=== PATIENT | male | born 1970 | race Two or more races ===

== ENCOUNTER → 2022-11-14 | Outpatient (CLI) | payer OTHER ==
[~2022-11-14] VITALS: Ht 167.6 cm; Wt 72.6 kg
[~2022-11-14] MED LIST: ADENOSINE 61 MG in GIVE UN-DILUTED 0 ML IV ONE
== END | disposition home or self-care (01) ==
LOC: XYW 09:32
DX: R07.89 Other chest pain (principal); Z95.1 Presence of aortocoronary bypass graft
CPT/HCPCS: 78452; 93017; A9500; J0153

== ENCOUNTER 2023-04-05 08:51 | Day surgery (SDC) | payer OTHER, MEDICAID ==
[2023-04-03 11:33] LABS: Urine Epithelial Cast None Seen /hpf (<5)
[2023-04-03 11:35] LABS: Basophils # (auto) 0.1 10 ^3/uL (0-0.2); Eosinophils # (auto) 0.1 10 ^3/uL (0-0.8); Lymphocytes # (auto) 3.2 10 ^3/uL (0.4-5.4); Mean Corpuscular Hgb Conc. 34.7 g/dL (32.0-36.0); Nucleated Red Blood Cells % 0.1 %; Red Cell Distribution Width 12.9 % (11.8-14.3); White Blood Cell 7.6 10^3/uL (4.4-10.8)
[2023-04-03 11:37] LABS: Basophils % (auto) 0.7 % (0.0-2.0); Eosinophils % (auto) 0.8 % (0.0-7.0); Hematocrit 51.1 % (41.0-53.0); Hemoglobin 17.7 g/dL (13.5-17.5); Lymphocytes % (auto) 42.1 % (10.0-50.0); Mean Corpuscular Hemoglobin 31.6 pg (28.0-32.0); Mean Corpuscular Volume 90.9 fL (80.0-100.0); Monocytes # (auto) 0.5 10 ^3/uL (0-1.3); Neutrophils # (auto) 3.8 10 ^3/uL (1.6-8.6); Neutrophils % (auto) 50.4 % (37.0-80.0); Red Blood Cells 5.62 10^6/uL (4.5-5.90)
[2023-04-03 11:51] LABS: Urine Bacteria NONE SEEN /hpf (None Seen); Urine Blood Negative /uL (Negative); Urine Clarity Clear (Clear); Urine Color Yellow (Yellow); Urine Mucus FEW (None Seen); Urine Protein, UAD Negative (Negative); Urine Specific Gravity 1.046 (1.001-1.035); Urine Urobilinogen Normal (Negative); Urine WBC 1 /hpf (0 - 3); Urine pH 5.5 (5.0-8.0)
[2023-04-03 11:52] LABS: INR 1.01 (0.9-1.15); Partial Thromboplastin Time 24.5 SEC (24.5-34.5); Prothrombin Time 10.6 sec (9.3-11.8)
[2023-04-03 12:01] LABS: Alanine Aminotransferase 27 U/L (7-40); Alkaline Phosphatase 114 U/L (46-116); Anion Gap 7 (5-15); Aspartate Aminotransferase 18 U/L (13-40); BUN/Creatinine Ratio 6.3 (10.0-20.0); Blood Urea Nitrogen 7 mg/dL (9-23); Calcium 9.8 mg/dL (8.5-10.1); Carbon Dioxide 28 mmol/L (20-30); Chloride 100 mmol/L (98-107); Glucose 318 mg/dL (74-106); Potassium 4.1 mmol/L (3.5-5.1); Sodium 135 mmol/L (136-145)
[2023-04-03 12:02] LABS: Albumin 4.7 g/dL (3.2-4.8); Bilirubin, Total 0.8 mg/dL (0.2-1.0); Total Protein 7.7 g/dL (5.7-8.2)
[~2023-04-05] VITALS: Ht 167.6 cm; Wt 65.8 kg
[~2023-04-05 08:51] MED LIST changes: -ADENOSINE 61 MG in GIVE UN-DILUTED 0 ML IV ONE; +AMLO1TAB22 PO
[2023-04-05] MEDS ORDERED: PROPOFOL 10 MG/ML 20 ML IV ONE ×3 (09:18→09:50)
[2023-04-05] MEDS ORDERED: LIDOCAINE 1% INJ PF 5ML AMP ONE (09:18)
[2023-04-05 09:55] VITALS: PULSE 70; RESP 13; TEMP 97.8; O2SAT 100
[2023-04-05 10:20] VITALS: BP 118/86; PULSE 81; RESP 15; O2SAT 99
== END 2023-04-05 10:30 | disposition home or self-care (01) ==
LOC: GI 08:51
PROVIDERS: ATTEND Internal Medicine Gastroenterology
DX: K59.00 Constipation, unspecified (principal); K29.50 Unspecified chronic gastritis without bleeding; K31.84 Gastroparesis; K31.89 Other diseases of stomach and duodenum; K44.9 Diaphragmatic hernia without obstruction or gangrene; D12.0 Benign neoplasm of cecum; K64.8 Other hemorrhoids; K57.30 Diverticulosis of large intestine without perforation or abscess without bleeding; K22.10 Ulcer of esophagus without bleeding; I10 Essential (primary) hypertension; E11.9 Type 2 diabetes mellitus without complications; Z79.899 Other long term (current) drug therapy; Z98.890 Other specified postprocedural states
CPT/HCPCS: 36415; 43239; 45385; 80053; 81001; 82962; 85025; 85610; 85730; 88305; 88312; 88342; J2704; J7030

== ENCOUNTER → 2023-09-16 | Outpatient (CLI) | payer OTHER ==
[2023-09-16 08:44] LABS: Urine Bacteria None Seen /hpf (None Seen)
[2023-09-16 09:02] LABS: Hematocrit 44.8 % (41.0-53.0); Hemoglobin 15.3 g/dL (13.5-17.5); Mean Corpuscular Hemoglobin 31.5 pg (28.0-32.0); Mean Corpuscular Hgb Conc. 34.3 g/dL (32.0-36.0); Mean Corpuscular Volume 91.9 fL (80.0-100.0); Red Blood Cells 4.87 10^6/uL (4.5-5.90); Red Cell Distribution Width 12.3 % (11.8-14.3); White Blood Cell 6.1 10^3/uL (4.4-10.8)
[2023-09-16 09:05] LABS: Urine Blood Negative /uL (Negative); Urine Clarity Clear (Clear); Urine Color Light-Yellow (Yellow); Urine Mucus FEW (None Seen); Urine Protein, UAD Negative (Negative); Urine Specific Gravity 1.041 (1.001-1.035); Urine Urobilinogen Normal (Negative); Urine WBC <1 /hpf (0 - 3); Urine pH 5.5 (5.0-9.0)
[2023-09-16 09:12] LABS: Basophils % (manual) 0 (0.0-2.0); Blast Cells 0; Metamyelocytes % 0; Myelocytes % 0; Promyelocytes % 0
[2023-09-16 09:26] LABS: Creatinine, Urine 131.41 mg/dL (30.0-125.0)
[2023-09-16 09:29] LABS: Band Neutrophils % (manual) 2; Eosinophils % (manual) 3 (0-7); Lymphocytes % (manual) 57 (10.0-50.0); Monocytes % (manual) 7 (0-12); Reactive Lymphocytes 5
[2023-09-16 09:30] LABS: Platelet Estimate Adequate; RBC Morphology Normal
[2023-09-16 09:31] LABS: Alanine Aminotransferase 15 U/L (7-40); Albumin 3.9 g/dL (3.2-4.8); Alkaline Phosphatase 112 U/L (46-116); Anion Gap 4 (5-15); Aspartate Aminotransferase 9 U/L (13-40); BUN/Creatinine Ratio 6.2 (10.0-20.0); Bilirubin, Total 0.4 mg/dL (0.2-1.0); Blood Urea Nitrogen 5 mg/dL (9-23); Calcium 9.4 mg/dL (8.5-10.1); Carbon Dioxide 29 mmol/L (20-30); Chloride 103 mmol/L (98-107); Cholesterol 213 mg/dL (< 200); Glucose 252 mg/dL (74-106); HDL Cholesterol 37 mg/dL (40-59); LDL Cholesterol 136 mg/dL (< 100); Sodium 136 mmol/L (136-145); Total Protein 6.2 g/dL (5.7-8.2); Triglycerides 291 mg/dL (< 150)
== END | disposition home or self-care (01) ==
LOC: LAB 08:32
PROVIDERS: ATTEND Internal Medicine
DX: Z12.11 Encounter for screening for malignant neoplasm of colon (principal); N42.9 Disorder of prostate, unspecified; E78.00 Pure hypercholesterolemia, unspecified; R68.89 Other general symptoms and signs; E11.69 Type 2 diabetes mellitus with other specified complication
CPT/HCPCS: 36415; 80053; 80061; 81001; 82043; 82570; 83036; 84153; 85007; 85027

== ENCOUNTER 2023-12-24 22:03 | Emergency (ER) | payer OTHER ==
[~2023-12-24] VITALS: Ht 167.6 cm; Wt 77.0 kg
[2023-12-24 22:32] VITALS: PULSE 73; RESP 16; TEMP 98.4; O2SAT 99
[2023-12-24] MEDS: SODIUM CHLORIDE 0.9% 1,000 ML IV ONE (22:41)
[2023-12-24 23:11] LABS: Basophils # (auto) 0.1 10 ^3/uL (0-0.2); Basophils % (auto) 0.8 % (0.0-2.0); Eosinophils # (auto) 0.1 10 ^3/uL (0-0.8); Eosinophils % (auto) 1.1 % (0.0-7.0); Hematocrit 39.5 % (41.0-53.0); Hemoglobin 13.6 g/dL (13.5-17.5); Lymphocytes # (auto) 2.8 10 ^3/uL (0.4-5.4); Lymphocytes % (auto) 30.2 % (10.0-50.0); Mean Corpuscular Hemoglobin 31.3 pg (28.0-32.0); Mean Corpuscular Hgb Conc. 34.5 g/dL (32.0-36.0); Mean Corpuscular Volume 90.8 fL (80.0-100.0); Monocytes # (auto) 0.7 10 ^3/uL (0-1.3); Monocytes % (auto) 7.2 % (0.0-12.0); Neutrophils # (auto) 5.7 10 ^3/uL (1.6-8.6); Neutrophils % (auto) 60.7 % (37.0-80.0); Nucleated Red Blood Cells % 0.1 %; Platelet Count (auto) 285 10^3/uL (140-450); Red Blood Cells 4.35 10^6/uL (4.5-5.90); Red Cell Distribution Width 12.8 % (11.8-14.3); White Blood Cell 9.3 10^3/uL (4.4-10.8)
[2023-12-24 23:18] LABS: Chloride 105 mmol/L (98-107); Potassium 3.7 mmol/L (3.5-5.1); Sodium 139 mmol/L (136-145)
[2023-12-24 23:19] LABS: Anion Gap 8 (5-15); Calcium 8.9 mg/dL (8.7-10.4); Carbon Dioxide 26 mmol/L (20-31)
[2023-12-24 23:24] LABS: BUN/Creatinine Ratio 7.3 (10.0-20.0); Blood Urea Nitrogen 7 mg/dL (9-23); Glucose 227 mg/dL (74-106)
[2023-12-25 01:39] VITALS: BP 116/75; PULSE 64; RESP 15; O2SAT 96
== END 2023-12-25 03:40 | disposition home or self-care (01) ==
LOC: EDBD 22:03 → EEVIPCON 22:03 → ER 22:03
DX: T42.8X1A Poisoning by antiparkinsonism drugs and other central muscle-tone depressants, accidental (unintentional), initial encounter (principal); R53.83 Other fatigue; I10 Essential (primary) hypertension; Y92.89 Other specified places as the place of occurrence of the external cause
CPT/HCPCS: 36415; 80048; 85025; 93005; 96360; 99285; J7030

== ENCOUNTER → 2024-01-09 | Outpatient (CLI) | payer OTHER | END | disposition home or self-care (01) | LOC: LAB 07:17 | PROVIDERS: ATTEND Internal Medicine | DX: E11.9 Type 2 diabetes mellitus without complications (principal) | CPT/HCPCS: 36415; 83036 ==

== ENCOUNTER → 2024-05-01 | Day surgery (SDC) | payer OTHER ==
[2024-04-29 09:53] LABS: Basophils # (auto) 0.1 10 ^3/uL (0-0.2); Basophils % (auto) 0.4 % (0.0-2.0); Eosinophils # (auto) 0.2 10 ^3/uL (0-0.8); Eosinophils % (auto) 1.3 % (0.0-7.0); Hematocrit 39.7 % (41.0-53.0); Hemoglobin 14.2 g/dL (13.5-17.5); Lymphocytes # (auto) 2.7 10 ^3/uL (0.4-5.4); Lymphocytes % (auto) 21.2 % (10.0-50.0); Mean Corpuscular Hemoglobin 32.4 pg (28.0-32.0); Mean Corpuscular Hgb Conc. 35.6 g/dL (32.0-36.0); Mean Corpuscular Volume 90.8 fL (80.0-100.0); Monocytes # (auto) 0.7 10 ^3/uL (0-1.3); Monocytes % (auto) 5.7 % (0.0-12.0); Neutrophils # (auto) 9.2 10 ^3/uL (1.6-8.6); Neutrophils % (auto) 71.4 % (37.0-80.0); Platelet Count (auto) 342 10^3/uL (140-450); Red Blood Cells 4.37 10^6/uL (4.5-5.90); Red Cell Distribution Width 12.2 % (11.8-14.3); White Blood Cell 12.8 10^3/uL (4.4-10.8)
[2024-04-29 10:10] LABS: INR 0.94 (0.9-1.15); Partial Thromboplastin Time 24.5 SEC (24.5-34.5)
[2024-04-29 12:09] LABS: Alanine Aminotransferase 24 U/L (7-40)
[2024-04-29 12:10] LABS: Albumin 4.3 g/dL (3.2-4.8); Anion Gap 9 (5-15); BUN/Creatinine Ratio 9.5 (10.0-20.0); Calcium 9.7 mg/dL (8.7-10.4); Carbon Dioxide 28 mmol/L (20-31); Chloride 99 mmol/L (98-107)
[2024-04-29 12:11] LABS: Aspartate Aminotransferase 15 U/L (13-40)
[2024-04-29 12:12] LABS: Bilirubin, Total 0.4 mg/dL (0.2-1.0); Total Protein 7.3 g/dL (5.7-8.2)
[2024-04-29 12:21] LABS: Sodium 136 mmol/L (136-145)
[2024-04-29 12:22] LABS: Blood Urea Nitrogen 7 mg/dL (9-23); Glucose 273 mg/dL (74-106)
[2024-04-29 13:18] LABS: Alkaline Phosphatase 119 U/L (46-116)
[~2024-05-01] VITALS: Ht 167.6 cm; Wt 72.6 kg
[~2024-05-01] MED LIST changes: +ASPI325T6 PO; +ATOR10TA PO; +BUSP5TAB51 PO; +DOCU-94 PO; +DULO60CA41 PO; +FAMO20TA10 PO; +FENO134C19 PO; +GABA-1250 PO; +INSU100I47 SC; +INSU1INJ19 SC; +LORA-1121 PO; +LORA-622 PO; +MELO15TA29 PO; +METO1TAB77 PO; +MIRT-94 OR; +NITR0.4D14 TD; +OMEGCAP OR; +OMEP20TA PO; +SODIUM CHLORIDE LOCK 10 ML ONE; +TIZA4TAB9 PO; +VENL150C3 PO
[2024-05-01 13:05] VITALS: PULSE 94; RESP 20; O2SAT 100
[2024-05-01] MEDS: fentaNYL CITRATE 100 MCG/2 ML VL ONE (13:09)
[2024-05-01] MEDS: MIDAZOLAM HCL 5 MG/ML-1ML VIAL ONE (13:09)
[2024-05-01] MEDS: diphenhdrAMINE HCL 50 MG/1 ML VL ONE (13:09)
[2024-05-01 13:30] VITALS: PULSE 101; RESP 16; O2SAT 98
[2024-05-01 13:50] VITALS: BP 134/74; PULSE 98; RESP 17; O2SAT 97
--- NOTE | 2024-05-01 14:55 | DVHOP2 ---
Operative Report DATE OF OPERATION: 05/01/24 PROCEDURE: Diagnostic Colonoscopy. PREOPERATIVE INDICATION: The patient is a 54 -year-old male undergoing colonoscopy for surveillance because of history of tubular adenoma and incomplete colonoscopy on last examination due to poor prep POSTOPERATIVE DIAGNOSES: Plan 1. Limited study due to poor prep with some residual thick liquid brown stool with debris noted in certain pockets at the splenic flexure and the hepatic flexure in the ascending colon area 2. However after careful irrigation aspiration no gross lesion was seen and it was a grossly normal examination up to the cecum PROCEDURE PERFORMED BY: Jeb Harris M.D. SCOPE: Olympus videocolonoscope. ASA CLASS: 2. PREOPERATIVE MEDICATIONS: Versed 3 mg, Fentanyl 75 mcg, Benadryl 50 mg PROCEDURE IN DETAIL: After obtaining an informed consent, the patient was placed on left lateral decubitus position. He was then sedated with the above medications. A rectal examination was performed that was normal. The colonoscope was then passed through the anus into the rectosigmoid and through the descending, transverse, and ascending colon up to the cecum with visualization of the appendiceal orifice, base of the cecum and the ileocecal valve. The colonoscope was then withdrawn. No polyps or masses were seen. There was no colitis. There was no clear-cut diverticular disease. Patient had a limited study due to poor prep again. However it was thick liquid stool and after careful irrigation aspiration no gross lesion was seen On retroflexion and straight on view the patient had trace to 1+ internal hemorrhoids The patient tolerated the procedure well without difficulty. WITHDRAWAL TIME: 6 minutes QUALITY OF THE PREP: [place] Bowel Prep score: 7. COMPLICATIONS : None SPECIMENS: None DISPOSITION: Stable D/C to home PLAN: 1. Repeat colonoscopy in 2 years with a better two day bowel prep 2. Resume GI soft diet advance as tolerated 3. Local anorectal hemorrhoidal care 4. Stool softeners and increase fluid and fiber intake 5. Outpatient follow up with me in 2-4 weeks to review results and discuss further management JEB HARRIS MD May 01, 2024 14:55
== END | disposition home or self-care (01) ==
LOC: GI 10:30
PROVIDERS: ATTEND Internal Medicine Gastroenterology
DX: K59.00 Constipation, unspecified (principal); K44.9 Diaphragmatic hernia without obstruction or gangrene; K31.84 Gastroparesis; K63.89 Other specified diseases of intestine; Z79.899 Other long term (current) drug therapy; Z86.0101 Personal history of adenomatous and serrated colon polyps
CPT/HCPCS: 36415; 45378; 80053; 82962; 85025; 85610; 85730; J1200; J2250; J3010; 99152

== ENCOUNTER → 2024-05-18 | Outpatient (CLI) | payer OTHER ==
[~2024-05-18] MED LIST changes: -SODIUM CHLORIDE LOCK 10 ML ONE
[2024-05-18 11:58] LABS: Basophils # (auto) 0.1 10 ^3/uL (0-0.2); Eosinophils # (auto) 0.1 10 ^3/uL (0-0.8); Eosinophils % (auto) 0.7 % (0.0-7.0); Hemoglobin 15.3 g/dL (13.5-17.5); Lymphocytes # (auto) 2.5 10 ^3/uL (0.4-5.4); Lymphocytes % (auto) 27.3 % (10.0-50.0); Mean Corpuscular Hemoglobin 31.6 pg (28.0-32.0); Mean Corpuscular Hgb Conc. 34.7 g/dL (32.0-36.0); Mean Corpuscular Volume 91.1 fL (80.0-100.0); Monocytes # (auto) 0.6 10 ^3/uL (0-1.3); Monocytes % (auto) 6.4 % (0.0-12.0); Neutrophils # (auto) 5.8 10 ^3/uL (1.6-8.6); Neutrophils % (auto) 64.6 % (37.0-80.0); Nucleated Red Blood Cells % 0.1 %; Platelet Count (auto) 407 10^3/uL (140-450); Red Blood Cells 4.83 10^6/uL (4.5-5.90)
[2024-05-18 12:25] LABS: Alanine Aminotransferase 16 U/L (7-40); Albumin 4.6 g/dL (3.2-4.8); Anion Gap 10 (5-15); BUN/Creatinine Ratio 10.3 (10.0-20.0); Bilirubin, Total 0.6 mg/dL (0.2-1.0); Blood Urea Nitrogen 11 mg/dL (9-23); Calcium 9.8 mg/dL (8.7-10.4); Carbon Dioxide 25 mmol/L (20-31); Chloride 101 mmol/L (98-107); Cholesterol 177 mg/dL (< 200); Total Protein 7.7 g/dL (5.7-8.2)
[2024-05-18 12:26] LABS: Alkaline Phosphatase 120 U/L (46-116); Aspartate Aminotransferase < 8 U/L (13-40); Glucose 346 mg/dL (74-106); HDL Cholesterol 31 mg/dL (40-59); LDL Cholesterol 112 mg/dL (< 100); Sodium 136 mmol/L (136-145); Triglycerides 274 mg/dL (< 150)
== END | disposition home or self-care (01) ==
LOC: LAB 11:16
PROVIDERS: ATTEND Internal Medicine
DX: E11.69 Type 2 diabetes mellitus with other specified complication (principal); E78.00 Pure hypercholesterolemia, unspecified; R68.89 Other general symptoms and signs
CPT/HCPCS: 36415; 80053; 80061; 82043; 83036; 85025

== ENCOUNTER 2024-08-05 05:46 | Inpatient (IN) | payer OTHER ==
[~2024-08-05] VITALS: Ht 167.6 cm; Wt 66.3 kg
--- NOTE | 2024-08-05 07:46 | ED.PDOC ---
SOB-HPI HPI Comments 54 year old male presents to the ED with chief complaint of hemoptysis. Patient reports that he has been coughing up blood for the past 2 days. Patient relays that he got diagnosed with pneumonia 2 weeks ago and completed a course of antibiotics he was prescribed. Patient states he has associated chest pain, fever, and chills. Patient notes the bleeding was only stained sputum at first, but today he had coughed up a large clot. Patient denies any SOB, dizziness, N/V, or headache. Chief Complaint: Cough Time Seen by MD: 07:45 Reviewed notes: Nurses Notes, Medications, Allergies Information Source: Patient Mode of Arrival: Ambulatory Severity: Moderate Timing: Days Duration: Since onset Context: At Rest PE Risk Factors: None History of: None Prehospital treatment: None Modifying Factors: Nothing Associated Signs and Symptoms: Fever, Cough, Hemoptysis, Chest Pain Quality: Aching Radiation: No Radiation Location: Substernal If cough with SOB: Productive, Bloody Past Medical History PAST MEDICAL HISTORY: Depression, DM, GERD, High Lipids, HTN, [place] Surgical History: Appendectomy, CABG Surgical History (Other): Carpal tunnel surgery Family History Family History: Reviewed,noncontributory to illness Social History Smoker: Non-Smoker Alcohol: Denies ETOH Use Drugs: Denies Drug Use Lives In: Home Constitutional: reports: chills, fever; denies: diaphoresis, fatigue, malaise, sweats, weakness, others EENTM: denies: blurred vision, double vision, ear bleeding, ear discharge, ear drainage, ear pain, ear ringing, eye pain, eye redness, hearing loss, mouth pain, mouth swelling, nasal discharge, nose bleeding, nose congestion, nose pain, photophobia, tearing, throat pain, throat swelling, voice changes, others Respiratory: reports: cough, hemoptysis; denies: orthopnea, SOB at rest, shortness of breath, SOB with excertion, stridor, wheezing, others Cardiovascular: reports: chest pain; denies: dizzy spells, diaphoresis, Dyspnea on exertion, edema, irregular heart beat, left arm pain, lightheadedness, palpitations, PND, syncope, others Gastrointestinal: denies: abdomen distended, abdominal pain, blood streaked bowels, constipated, diarrhea, dysphagia, difficulty swallowing, hematemesis, melena, nausea, poor appetite, poor fluid intake, rectal bleeding, rectal pain, vomiting, others Genitourinary: denies: burning, dysuria, flank pain, frequency, hematuria, incontinence, penile discharge, penile sore, pain, testicle pain, testicle swelling, urgency, others Neurological: denies: dizziness, fainting, headache, left sided numbness, left sided weakness, numbness, paresthesia, pre-existing deficit, right sided numbness, right sided weakness, seizure, speech problems, tingling, tremors, weakness, others Musculoskeletal: denies: back pain, gout, joint pain, joint swelling, muscle pain, muscle stiffness, neck pain, others Integumetry: denies: bruises, change in color, change in hair/nails, dryness, laceration, lesions, lumps, rash, wounds, others Allergic/Immunocompromised: denies: Difficulty Healing, Frequent Infections, Hives, Itching, others Hematologic/Lymphatic: denies: anemia, blood clots, easy bleeding, easy bruising, swollen glands, others Endocrine: denies: excessive hunger, excessive sweating, excessive thirst, excessive urination, flushing, intolerance to cold, intolerance to heat, unexplained weight gain, unexplained weight loss, others Psychiatric: denies: anxiety, bipolar disorder, depression, hopeless, panic disorder, schizophrenia, sleepless, suicidal, others All Other Systems: Reviewed and Negative Physical Exam General Appearance: No Apparent Distress, Normal HEENT: Normal ENT Inspection, PERRL/EOMI, Pharynx Normal, TMs Normal Neck: Full Range of Motion, Non-Tender, Normal, Normal Inspection Respiratory: Chest Non-Tender, Lungs Clear, No Accessory Muscle Use, No Respiratory Distress, Normal Breath Sounds, Other (Patient coughing of blood) Cardiovascular: No Edema, No JVD, No Murmur, No Gallop, Normal Peripheral Pulses, Regular Rate/Rhythm Breast Exam: Deferred Gastrointestinal: No Organomegaly, Non Tender, No Pulsatile Mass, Normal Bowel Sounds, Soft Genitalia: Deferred Pelvic: Deferred Rectal: Deferred Extremities: No calf tenderness, Normal capillary refill, Normal inspection, Normal range of motion, Non-tender, No pedal edema Musculoskeletal : Apperance: Normal Neurologic: Alert, rig supervisor II-XII nml as Tested, No Motor Deficits, Normal Affect, Normal Mood, No Sensory Deficits Cerebellar Function: Normal Reflexes: Normal Skin: Dry, Normal Color, Warm Peripheral Pulses: 1+ carotid (R), 1+ carotid (L) Lymphatic: No Adenopathy Was a procedure done? Was a procedure done?: No Differential Dx Differential Diagnosis: Bronchitis, Hypertension, Pneumonia, Pulmonary Emb olism, Allergic Rhinitis, Pharyngitis, URI X-Ray, Labs, Meds, VS Vital Signs Date Time Temp Pulse Resp B/P (MAP) Pulse Ox O2 Delivery O2 Flow Rate FiO2 08/05/24 13:11 97.7 98 18 137/86 (103) 98 97.7 08/05/24 10:56 97.7 98 18 135/86 (102) 97 97.7 08/05/24 08:35 97 18 97 Room Air* 0 21 08/05/24 08:32 98.2 97 18 112/78 (89) 97 98.2 08/05/24 06:10 98.4 111 18 117/81 (93) 97 98.4 Lab Test 08/05/24 08:03 Range/Units White Blood Count 11.7 H 4.4-10.8 10^3/uL Red Blood Count 4.45 L 4.5-5.90 10^6/uL Hemoglobin 13.1 L 13.5-17.5 g/dL Hematocrit 39.4 L 41.0-53.0 % Mean Corpuscular Volume 88.5 80.0-100.0 fL Mean Corpuscular Hemoglobin 29.4 28.0-32.0 pg Mean Corpuscular Hemoglobin Concent 33.2 32.0-36.0 g/dL Red Cell Distribution Width 13.2 11.8-14.3 % Platelet Count 350 140-450 10^3/uL Mean Platelet Volume 7.3 6.9-10.8 fL Neutrophils (%) (Auto) 71.6 37.0-80.0 % Lymphocytes (%) (Auto) 19.6 10.0-50.0 % Monocytes (%) (Auto) 6.8 0.0-12.0 % Eosinophils (%) (Auto) 1.5 0.0-7.0 % Basophils (%) (Auto) 0.5 0.0-2.0 % Neutrophils # (Auto) 8.4 1.6-8.6 10 ^3/uL Lymphocytes # (Auto) 2.3 0.4-5.4 10 ^3/uL Monocytes # (Auto) 0.8 0-1.3 10 ^3/uL Eosinophils # (Auto) 0.2 0-0.8 10 ^3/uL Basophils # (Auto) 0.1 0-0.2 10 ^3/uL Nucleated Red Blood Cells 0.1 % Prothrombin Time 10.3 9.3-11.8 sec Prothrombin Time INR 0.97 0.9-1.15 Activated Partial Thromboplast Time 25.1 24.5-34.5 SEC D-Dimer, Quantitative 0.95 H 0.0-0.49 mg/L FEU Sodium Level 134 L 136-145 mmol/L Potassium Level 4.4 3.5-5.1 mmol/L Chloride Level 100 98-107 mmol/L Carbon Dioxide Level 29 20-31 mmol/L Anion Gap 5 5-15 Blood Urea Nitrogen 7 L 9-23 mg/dL Creatinine 0.82 0.700-1.30 mg/dL Glomerular Filtration Rate Calc 106 >90 mL/min BUN/Creatinine Ratio 8.5 L 10.0-20.0 Serum Glucose 276 H 74-106 mg/dL Hemoglobin A1c > 14.0 H <5.7 % A1C Calcium Level 8.9 8.7-10.4 mg/dL Magnesium Level 2.2 1.6-2.6 mg/dL Total Bilirubin 0.4 0.2-1.0 mg/dL Aspartate Amino Transferase (AST) 10 L 13-40 U/L Alanine Aminotransferase (ALT) 11 7-40 U/L Alkaline Phosphatase 116 46-116 U/L Total Protein 7.3 5.7-8.2 g/dL Albumin 3.9 3.2-4.8 g/dL CA 125 Antigen Pending Current Medications Medications (Trade) Dose Ordered Sig/Edd Route Start Time Stop Time Status Last Admin Sodium Chloride 250 ml @ 250 mls/hr Q1H ONCE IV 08/05/24 07:45 08/05/24 08:44 DC 08/05/24 09:43 Chest XR: FINDINGS: Lines and Tubes: None Lungs: Right upper lobe consolidation. Pleura: No effusion. No pneumothorax. Cardiomediastinal contours: Unremarkable Bones: No acute osseous abnormality. Status post median sternotomy. IMPRESSION: 1. Right upper lobe consolidation which may represent pneumonia in the appropriate clinical setting. X-Ray, Labs, Meds, VS Comment Course in the emergency department patient came to the emergency department complaining of coughing of large amount of blood today but has been normal so weak Patient has a history of hypertension diabetes high cholesterol depression and has a history of CABG carpal tunnel and appendicitis CBC 69024 with 71.6% neutrophils and normal H&H INR 0.97 D-dimer 0.95 elevated CMP shows a blood sugar of 276 A1c more than 14 Magnesium 2.2 Chest x-ray shows right upper lobe pneumonia CT chest angio shows large cavitary mass nine patient will be admitted for further care Images Reviewed?: Images reviewed and evaluated by me Time of 1ST Reevaluation: 08:44 Reevaluation 1ST: Unchanged Time of 2ND Reevaluation: 15:27 Reevaluation 2ND: Unchanged Patient Education/Counseling: Diagnosis, Treatment, Prognosis Family Education/Counseling: Diagnosis, Treatment, Prognosis, No Family Present Departure 1 Departure Time of Disposition: 15:30 Impression: Primary Impression: Hemoptysis Additional Impressions: Cavitary pneumonia CAD (coronary artery disease) of artery bypass graft Qualified Codes: I25.810 - Atherosclerosis of coronary artery bypass graft(s) without angina pectoris Disposition: ADMITTED INPATIENT Admit to: Tele Condition: Serious Critical Care Note Critical Care Time?: No Stability Stability form required: Yes Unstable for transfer: Telemetry monitoring, Requires medication (Requires Med for stabilization) Heart Score Heart Score: Heart Score Response (Comments) Value History N/A 0 EKG N/A 0 Age 45-64 1 Risk Factors 1 or 2 risk factors 1 Troponin N/A 0 Total 2 I personally scribed for NIKKI PONCE MD ([email or web address]) on 08/05/24 at 07:46. Electronically submitted by Favio Monet ([email or web address]). I personally scribed for NIKKI PONCE MD ([email or web address]) on 08/05/24 at 11:10. Electronically submitted by Favio Monet ([email or web address]). NIKKI PONCE MD August 05, 2024 07:46
--- NOTE | 2024-08-05 08:11 | DVH ---
XY CHEST TWO VIEWS ROUTINE CLINICAL HISTORY: coughing blood COMPARISON: None TECHNIQUE: Frontal and lateral view of the chest was obtained FINDINGS: Lines and Tubes: None Lungs: Right upper lobe consolidation. Pleura: No effusion. No pneumothorax. Cardiomediastinal contours: Unremarkable Bones: No acute osseous abnormality. Status post median sternotomy. IMPRESSION: 1. Right upper lobe consolidation which may represent pneumonia in the appropriate clinical setting.
[2024-08-05 08:35] VITALS: PULSE 97; RESP 18; O2SAT 97
[2024-08-05 08:49] LABS: Alanine Aminotransferase 11 U/L (7-40); Albumin 3.9 g/dL (3.2-4.8); Alkaline Phosphatase 116 U/L (46-116); Anion Gap 5 (5-15); BUN/Creatinine Ratio 8.5 (10.0-20.0); Calcium 8.9 mg/dL (8.7-10.4); Carbon Dioxide 29 mmol/L (20-31); Chloride 100 mmol/L (98-107); Magnesium 2.2 mg/dL (1.6-2.6); Potassium 4.4 mmol/L (3.5-5.1); Total Protein 7.3 g/dL (5.7-8.2)
[2024-08-05 08:50] LABS: Bilirubin, Total 0.4 mg/dL (0.2-1.0)
[2024-08-05 08:52] LABS: Aspartate Aminotransferase 10 U/L (13-40); Blood Urea Nitrogen 7 mg/dL (9-23); Glucose 276 mg/dL (74-106); INR 0.97 (0.9-1.15); Partial Thromboplastin Time 25.1 SEC (24.5-34.5); Prothrombin Time 10.3 sec (9.3-11.8); Sodium 134 mmol/L (136-145)
[2024-08-05 09:33] LABS: Basophils # (auto) 0.1 10 ^3/uL (0-0.2); Basophils % (auto) 0.5 % (0.0-2.0); Eosinophils # (auto) 0.2 10 ^3/uL (0-0.8); Eosinophils % (auto) 1.5 % (0.0-7.0); Hematocrit 39.4 % (41.0-53.0); Hemoglobin 13.1 g/dL (13.5-17.5); Lymphocytes # (auto) 2.3 10 ^3/uL (0.4-5.4); Lymphocytes % (auto) 19.6 % (10.0-50.0); Mean Corpuscular Hemoglobin 29.4 pg (28.0-32.0); Mean Corpuscular Hgb Conc. 33.2 g/dL (32.0-36.0); Mean Corpuscular Volume 88.5 fL (80.0-100.0); Monocytes # (auto) 0.8 10 ^3/uL (0-1.3); Monocytes % (auto) 6.8 % (0.0-12.0); Neutrophils # (auto) 8.4 10 ^3/uL (1.6-8.6); Neutrophils % (auto) 71.6 % (37.0-80.0); Nucleated Red Blood Cells % 0.1 %; Platelet Count (auto) 350 10^3/uL (140-450); Red Blood Cells 4.45 10^6/uL (4.5-5.90); Red Cell Distribution Width 13.2 % (11.8-14.3); White Blood Cell 11.7 10^3/uL (4.4-10.8)
[2024-08-05] MEDS: SODIUM CHLORIDE 0.9% 250 ML IV ONE (09:43)
[2024-08-05] MEDS: IOHEXOL 350 MG/ML 100ML IJ ONE (13:22)
--- NOTE | 2024-08-05 13:46 | DVH ---
CTA Chest with intravenous contrast INDICATION: Pulmonary embolism hemoptysis and elevated D-dimer COMPARISON: None TECHNIQUE: Multidetector spiral CTA of the chest was performed of the chest with intravenous contrast . PULMONARY ANGIOGRAPHY PROTOCOL was utilized using a bolus-tracking technique centered on the main p ulmonary artery. Axial, coronal and sagittal multiplanar and MIP reformats were performed. CONTRAST: Type of contrast: Omni 350 Contrast injected: 100 ml Radiation dose : Chest: CTDI volume is 9.48 mGy. Dose-length product is 368.24 mGy*cm The dose indicators for CT are the volume computed Tomography (CT) dose Index (CTDIvol) and the dose Length product (DLP), and are measured in units of mGy and mGy-cm, respectively. These indicators are not patient dose, but values generated from the CT scanner acquisition factors. The report includes radiation exposure data for exposures received during this examination. Findings: Pulmonary artery: No pulmonary embolism Lower neck: Normal thyroid. Lungs: Masslike consolidation in the right upper lobe with some cavitation. Mass/consolidation extend s into the right middle lobe. Heart/Vascular Structures: Normal heart size. No pericardial effusion. Lymph Nodes: Mediastinal and hilar lymphadenopathy. Pleura: No pleural effusion or significant pneumothorax. Musculoskeletal: No acute osseous abnormality. Soft tissues: Normal. Upper abdomen: Cholelithiasis. IMPRESSION: 1. No pulmonary embolism. 2. Masslike consolidation with cavitation in the right upper lobe extending into the right middle lob e. Finding could represent cavitary pneumonia. Malignancy is not excluded. Clinical correlation and continued follow-up is recommended. Lesion would be amenable to CT-guided biopsy if clinically cally cated. Mediastinal and hilar lymphadenopathy is noted. HS:Y
[2024-08-05] MEDS ORDERED: DEXTROSE (50%) 50ML SYRG IV PRN (14:30)
[2024-08-05] MEDS ORDERED: ACETAMINOPHEN 325 MG TAB PO PRN (14:30)
[2024-08-05] MEDS ORDERED: MORPHINE SULFATE INJ 2 MG/ml SYRG IV PRN (14:30)
[2024-08-05] MEDS ORDERED: NITROGLYCERIN 0.4 MG SL TAB SL PRN (14:30)
[2024-08-05] MEDS ORDERED: ONDANSETRON HCL 4 MG/2 ML VIAL IV PRN (14:30)
[2024-08-05] MEDS ORDERED: HYDROcodone-ACET 5/325MG TAB PO PRN (14:30)
[2024-08-05] MEDS ORDERED: AMIT-238 PO (14:45)
--- NOTE | 2024-08-05 15:03 | DVHHP2 ---
History of Present Illness Reason for Visit: Hemoptysis History of Present Illness Victor Manuel Mayer is a 54-year-old male with past medical history of hypertension, hyperlipidemia, diabetes, GERD, [place] status post CABG in 2017 at [place], depression, colonoscopy, appendectomy, and carpal tunnel surgery who presents to the ED with coughing for 3 months as well as hemoptysis for 2 weeks. Patient reports that he went to see his primary was given antibiotics for 10 days finished the course last week diagnosed for pneumonia. Patient reports that he is taking blood thinners at this time. Patient denies any chest pain, shortness of breath, fever, chills, recent trauma or injury, recent travels, recent sick contacts, recent ingestion of spoiled food, abdominal pain, nausea, vomiting, or diarrhea. Cardiovascular: HTN, [place], hyperipidemia GI: GERD Psych: Depression Endocrine: Diabetes Past Surgical History: Appendectomy, CABG, Other (Colonoscopy and carpal tunnel surgery) Family History: DM, Other (Mom with diabetes) Smoke: No ALCOHOL: none Drugs: None Lives: with Family Domestic Violence: Neg Review of Systems Respiratory: Hemoptysis Allergies: Coded Allergies: NO KNOWN ALLERGIES (Unverified , 11/14/22) Exam Vital Signs Vital Signs Date Time Temp Pulse Resp B/P (MAP) Pulse Ox O2 Delivery O2 Flow Rate FiO2 08/05/24 13:11 97.7 98 18 137/86 (103) 98 97.7 08/05/24 08:35 Room Air* 0 21 General Appearance: Alert, Oriented X3, Cooperative, No acute distress HEENT: Atraumatic, PERRLA, EOMI, Mucous membr. moist/pink Respiratory: Normal air movement Cardiovascular: Normal S1, Normal S2 Abdominal: Normal bowel sounds, Soft Extremities: No clubbing, No cyanosis, No edema, Normal pulses Skin: No significant lesion Neuro: Normal gait, Normal speech, Strength at 5/5 X4 ext, Normal tone, Sensation intact Psych/Mental Status: Mental status NL, Mood NL Labs/Xrays Labs Test 08/05/24 08:03 Range/Units White Blood Count 11.7 H 4.4-10.8 10^3/uL Red Blood Count 4.45 L 4.5-5.90 10^6/uL Hemoglobin 13.1 L 13.5-17.5 g/dL Hematocrit 39.4 L 41.0-53.0 % Mean Corpuscular Volume 88.5 80.0-100.0 fL Mean Corpuscular Hemoglobin 29.4 28.0-32.0 pg Mean Corpuscular Hemoglobin Concent 33.2 32.0-36.0 g/dL Red Cell Distribution Width 13.2 11.8-14.3 % Platelet Count 350 140-450 10^3/uL Mean Platelet Volume 7.3 6.9-10.8 fL Neutrophils (%) (Auto) 71.6 37.0-80.0 % Lymphocytes (%) (Auto) 19.6 10.0-50.0 % Monocytes (%) (Auto) 6.8 0.0-12.0 % Eosinophils (%) (Auto) 1.5 0.0-7.0 % Basophils (%) (Auto) 0.5 0.0-2.0 % Neutrophils # (Auto) 8.4 1.6-8.6 10 ^3/uL Lymphocytes # (Auto) 2.3 0.4-5.4 10 ^3/uL Monocytes # (Auto) 0.8 0-1.3 10 ^3/uL Eosinophils # (Auto) 0.2 0-0.8 10 ^3/uL Basophils # (Auto) 0.1 0-0.2 10 ^3/uL Nucleated Red Blood Cells 0.1 % Prothrombin Time 10.3 9.3-11.8 sec Prothrombin Time INR 0.97 0.9-1.15 Activated Partial Thromboplast Time 25.1 24.5-34.5 SEC D-Dimer, Quantitative 0.95 H 0.0-0.49 mg/L FEU Sodium Level 134 L 136-145 mmol/L Potassium Level 4.4 3.5-5.1 mmol/L Chloride Level 100 98-107 mmol/L Carbon Dioxide Level 29 20-31 mmol/L Anion Gap 5 5-15 Blood Urea Nitrogen 7 L 9-23 mg/dL Creatinine 0.82 0.700-1.30 mg/dL Glomerular Filtration Rate Calc 106 >90 mL/min BUN/Creatinine Ratio 8.5 L 10.0-20.0 Serum Glucose 276 H 74-106 mg/dL Calcium Level 8.9 8.7-10.4 mg/dL Magnesium Level 2.2 1.6-2.6 mg/dL Total Bilirubin 0.4 0.2-1.0 mg/dL Aspartate Amino Transferase (AST) 10 L 13-40 U/L Alanine Aminotransferase (ALT) 11 7-40 U/L Alkaline Phosphatase 116 46-116 U/L Total Protein 7.3 5.7-8.2 g/dL Albumin 3.9 3.2-4.8 g/dL CTA Chest with intravenous contrast INDICATION: Pulmonary embolism hemoptysis and elevated D-dimer COMPARISON: None TECHNIQUE: Multidetector spiral CTA of the chest was performed of the chest with intravenous contrast. PULMONARY ANGIOGRAPHY PROTOCOL was utilized using a bolus- tracking technique centered on the main pulmonary artery. Axial, coronal and sagittal multiplanar and MIP reformats were performed. CONTRAST: Type of contrast: Omni 350 Contrast injected: 100 ml Radiation dose : Chest: CTDI volume is 9.48 mGy. Dose-length product is 368.24 mGy*cm The dose indicators for CT are the volume computed Tomography (CT) dose Index (CTDIvol) and the dose Length product (DLP), and are measured in units of mGy and mGy-cm, respectively. These indicators are not patient dose, but values generated from the CT scanner acquisition factors. The report includes radiation exposure data for exposures received during this examination. Findings: Pulmonary artery: No pulmonary embolism Lower neck: Normal thyroid. Lungs: Masslike consolidation in the right upper lobe with some cavitation. Mass/consolidation extends into the right middle lobe. Heart/Vascular Structures: Normal heart size. No pericardial effusion. Lymph Nodes: Mediastinal and hilar lymphadenopathy. Pleura: No pleural effusion or significant pneumothorax. Musculoskeletal: No acute osseous abnormality. Soft tissues: Normal. Upper abdomen: Cholelithiasis. IMPRESSION: 1. No pulmonary embolism. 2. Masslike consolidation with cavitation in the right upper lobe extending into the right middle lobe. Finding could represent cavitary pneumonia. Malignancy is not excluded. Clinical correlation and continued follow-up is recommended. Lesion would be amenable to CT-guided biopsy if clinically indicated. Mediastinal and hilar lymphadenopathy is noted. XY CHEST TWO VIEWS ROUTINE CLINICAL HISTORY: coughing blood COMPARISON: None TECHNIQUE: Frontal and lateral view of the chest was obtained FINDINGS: Lines and Tubes: None Lungs: Right upper lobe consolidation. Pleura: No effusion. No pneumothorax. Cardiomediastinal contours: Unremarkable Bones: No acute osseous abnormality. Status post median sternotomy. IMPRESSION: 1. Right upper lobe consolidation which may represent pneumonia in the appropriate clinical setting. Assessment/Plan Assessment/Plan Assessment Hemoptysis with possible right upper lobe mass Probable pneumonia PE ruled out History of hypertension History of hyperlipidemia History of diabetes type 2 History of GERD History of [place] status post CABG at [place] in 2017 History of depression History of colonoscopy History of appendectomy History of carpal tunnel surgery Plan Admit to tele Antiemetics Pain management Hold anti coags Chest x-ray noted CT a chest noted Elevated D-dimer NS 250 cc given ED EKG Mag level PT/PTT Diet Hemoglobin A1c ISS and Accu-Cheks UA UDS CA 125 CEA ESR CRP Home medications reconciled DVT prophylaxis-not indicated patient ambulating PUD prophylaxis-PPIs Discussed plan of care with patient and nurse Oncology consult Pulmonary consult Plan discussed with: Patient My Orders Orders - JEFFERY DIOP HORSE RIDER Procedure Category Date Status Time Admit ADMIT 08/05/24 Transmitted 14:24 Allergies SAIMA 08/05/24 Transmitted 14:24 Code Status CODE 08/05/24 Transmitted 14:24 Hydrocodone-Acet PHA 08/05/24 Transmitted 5/325mg Tab ([place] 14:30 Ondansetron Hcl PHA 08/05/24 Transmitted (Zofran) 14:30 Complete Blood Count LAB 08/06/24 Verified 04:00 Comprehensive LAB 08/06/24 Verified Metabolic Panel 04:00 Cardiac DIET 08/05/24 Transmitted Diet-2gna,Lofat,Lochol Dinner Acetaminophen Tablet PHA 08/05/24 Transmitted (Tylenol Tablet) 14:30 Nitroglycerin PHA 08/05/24 Transmitted Sublingual (Ntrostat 14:30 Morphine Sulfate PHA 08/05/24 Transmitted Injection 14:30 Stat Ekg For Chest SAIMA 08/05/24 Transmitted Pain 14:24 Notify Md Of Changes SAIMA 08/05/24 Transmitted From Base 14:24 Gps Field Data Collector For SAIMA 08/05/24 Transmitted 24 Hours 14:24 Emergency Dysrhythmia SAIMA 08/05/24 Transmitted Protocol 14:24 Rhythm Strips Once SAIMA 08/05/24 Transmitted Every Shift 14:24 Oxygen By Nasal RT 08/05/24 Transmitted Cannula 14:24 Glucose Blood PHA 08/05/24 Transmitted (Accu-Chek Comfort 17:00 Mild Sliding Scale PHA 08/05/24 Transmitted 17:00 Dextrose 50% Syringe PHA 5/21/25 Transmitted 14:30 Hemoglobin A1c LAB 08/05/24 Transmitted 14:24 Urinalysis LAB 08/05/24 Transmitted 14:24 Drug Screen LAB 08/05/24 Transmitted 14:24 Ceftriaxone Ivpb PHA 08/05/24 Verified Rocephin 14:30 Date of Service: August 05, 2024 Billing Provider: JEFFERY DIOP Common Visit Codes: [id number] INP/OBS CARE (HIGH) JEFFERY DIOP August 05, 2024 15:03
[2024-08-05 15:55] LABS: Erythrocyte Sedimentation Rate 58 mm/hr (0-20)
[2024-08-05] MEDS: ACCU-CHEK COMFORT CURVE STRIP VI SCH (17:00)
[2024-08-05] MEDS ORDERED: Tizanidine Hydrochloride (Zanaflex) 4 MG PO SCH (18:00)
[2024-08-05] MEDS: cefTRIAXone 1GM/50ML D5W 50 ML IV SCH (18:00)
[2024-08-05] MEDS: InsuLIN REG 1unit/0.01ml Soln (100units/ml) SC SCH (18:00)
[2024-08-05 20:00] VITALS: PULSE 100
[2024-08-05 21:00] VITALS: BP 136/86; PULSE 100; RESP 20; TEMP 98.5; O2SAT 97
[2024-08-05] MEDS: busPIRone HCL 10 MG TAB PO SCH (21:03)
[2024-08-05] MEDS: ATORVASTATIN 20 MG TAB PO SCH (21:03)
[2024-08-05] MEDS: MIRTAZAPINE 30 MG TAB PO SCH (21:03)
[2024-08-05] MEDS: FAMOTIDINE 20 MG TAB PO SCH (21:03)
[2024-08-05] MEDS: GABAPENTIN 300 MG CAP PO SCH (21:03)
[2024-08-05] MEDS: LORazepam 0.5 MG TAB PO SCH (21:03)
[2024-08-05 21:14] LABS: Urine Bacteria None Seen /hpf (None Seen)
[2024-08-05 21:43] LABS: Urine Blood Negative /uL (Negative); Urine Clarity Clear (Clear); Urine Color Colorless (Yellow); Urine Protein, UAD Negative (Negative); Urine Specific Gravity 1.011 (1.001-1.035); Urine Squamous Epithelial Cell None Seen /hpf (<5); Urine Urobilinogen Normal (Negative); Urine WBC < 1 /HPF (0-3); Urine pH 7.5 (5.0-9.0)
[2024-08-05 21:44] LABS: Amphetamine Screen, Urine Neg (NEGATIVE); Barbiturate Scree,Urine Neg (NEGATIVE); Benzodiazephine Screen, Urine Neg (NEGATIVE); Cannabinoid Screen, Urine Neg (NEGATIVE); Cocaine Screen, Urine Neg (NEGATIVE); Opiate Scree,Urine Pos (NEGATIVE); Phencyclidine Screen, Urine Neg (NEGATIVE)
[2024-08-06] VITALS (8 sets, daily range): BP systolic 104–135; BP diastolic 69–94; PULSE 62–114; RESP 16–21; TEMP 97.9–98.4; O2SAT 96–99
[2024-08-06] MEDS: Tizanidine Hydrochloride (Zanaflex) 4 MG PO SCH
[2024-08-06 07:40] LABS: Basophils # (auto) 0.1 10 ^3/uL (0-0.2); Basophils % (auto) 0.7 % (0.0-2.0); Eosinophils # (auto) 0.3 10 ^3/uL (0-0.8); Eosinophils % (auto) 3.8 % (0.0-7.0); Hematocrit 37.4 % (41.0-53.0); Hemoglobin 12.9 g/dL (13.5-17.5); Lymphocytes # (auto) 2.7 10 ^3/uL (0.4-5.4); Lymphocytes % (auto) 30.4 % (10.0-50.0); Mean Corpuscular Hemoglobin 29.9 pg (28.0-32.0); Mean Corpuscular Hgb Conc. 34.4 g/dL (32.0-36.0); Monocytes # (auto) 0.7 10 ^3/uL (0-1.3); Monocytes % (auto) 7.8 % (0.0-12.0); Neutrophils % (auto) 57.3 % (37.0-80.0); Nucleated Red Blood Cells % 0.1 %; Platelet Count (auto) 361 10^3/uL (140-450); Red Blood Cells 4.29 10^6/uL (4.5-5.90); Red Cell Distribution Width 13.1 % (11.8-14.3); White Blood Cell 8.7 10^3/uL (4.4-10.8)
[2024-08-06 08:00] LABS: Alanine Aminotransferase 10 U/L (7-40); Albumin 3.6 g/dL (3.2-4.8); Alkaline Phosphatase 97 U/L (46-116); Anion Gap 9 (5-15); Carbon Dioxide 26 mmol/L (20-31); Chloride 102 mmol/L (98-107); Potassium 4.1 mmol/L (3.5-5.1); Sodium 137 mmol/L (136-145); Total Protein 6.8 g/dL (5.7-8.2)
[2024-08-06 08:01] LABS: Bilirubin, Total 0.4 mg/dL (0.2-1.0)
[2024-08-06 08:05] LABS: Aspartate Aminotransferase 10 U/L (13-40); BUN/Creatinine Ratio 7.1 (10.0-20.0); Blood Urea Nitrogen < 5 mg/dL (9-23); Glucose 174 mg/dL (74-106)
[2024-08-06] MEDS: LORATADINE 10 MG TAB PO SCH (08:53)
[2024-08-06] MEDS: VENLAFAXINE HCL 37.5mg XR cap PO SCH (08:54)
[2024-08-06] MEDS: AMITRIPTYLINE HCL 25 MG TAB PO SCH (08:54)
[2024-08-06] MEDS: METOPROLOL TARTRATE 50 MG TAB PO SCH (08:54)
[2024-08-06] MEDS: amLODIPine BESYLATE 5 MG TAB PO SCH (08:55)
[2024-08-06] MEDS: FENOFIBRATE 134 MG PO SCH (08:59)
[2024-08-06] MEDS ORDERED: VANCOMYCIN PER PHARMACY 0 MG IV SCH (10:45)
--- NOTE | 2024-08-06 11:07 | DVHPN2 ---
Subjective 54-year-old male with a history of diabetes, hypertension, coronary artery disease status post CABG in 2017, depression, GERD, hiatal hernia comes with chief complaint of cough for 3 months and recently hemoptysis. He says he had the cough for about 3 months it was dry in the beginning and then he was having some productive cough and then he went to his primary care physician and had a treatment for possible pneumonia with an antibiotic that he took for 10 days and he finished it but he did not get better Lately he has been having also hemoptysis where he describes having coughing up some blood clots. It is mostly dark blood associated with some dark sputum sometimes He also describes a metal taste that he feels when he is coughing up that phlegm No weight loss No fever and chills Changes from previous H/P or p: Changes Respiratory: Hemoptysis Objective Vitals Vital Signs Date Time Temp Pulse Resp B/P (MAP) Pulse Ox O2 Delivery O2 Flow Rate FiO2 08/06/24 08:55 135/89 08/06/24 08:54 101 08/06/24 08:30 97.9 16 96 97.9 08/05/24 20:00 Room Air* 0 21 Intake/Output Intake and Output 08/06/24 07:00 Intake Total 540 ml Balance 540 ml Intake Oral 240 ml IV Total 300 ml # Voids 3 General Appearance: Alert, Oriented X3, Cooperative, No acute distress Lungs: Clear to auscultation, Normal air movement Cardiovascular: Regular rate, Normal S1, Normal S2 Abdomen: Normal bowel sounds, Soft, No tenderness Extremities: No edema Medications Current Medications Medications Dose Ordered Sig/Edd Route Start Time Stop Time Status Last Admin Dose Admin Acetaminophen/ Hydrocodone Bitart 1 tab Q4HP PRN PO 08/05/24 14:30 Ondansetron HCl 4 mg Q4HP PRN IV 08/05/24 14:30 Acetaminophen 650 mg Q6HP PRN PO 08/05/24 14:30 Nitroglycerin 0.4 mg Q5MINP PRN SL 08/05/24 14:30 Morphine Sulfate 2 mg Q30M PRN IV 08/05/24 14:30 Diagnostic Test (Pha) 1 strip ACHS 08/05/24 17:00 08/06/24 06:01 1 STRIP Insulin Human Regular ACHS SC 08/05/24 17:00 08/06/24 06:01 3 UNITS Dextrose 50 ml UD PRN IV 08/05/24 14:30 Amlodipine Besylate 5 mg DAILY PO 08/06/24 10:00 08/06/24 08:55 5 MG Famotidine 40 mg HS PO 08/05/24 22:00 08/05/24 21:03 40 MG Gabapentin 300 mg TID PO 08/05/24 22:00 08/06/24 05:40 300 MG Loratadine 10 mg DAILY PO 08/06/24 10:00 08/06/24 08:53 10 MG Lorazepam 1 mg TID PO 08/05/24 22:00 08/06/24 05:40 1 MG Metoprolol Tartrate 50 mg DAILY PO 08/06/24 10:00 08/06/24 08:54 50 MG Mirtazapine 30 mg HS PO 08/05/24 22:00 08/05/24 21:03 30 MG Atorvastatin Calcium 10 mg HS PO 08/05/24 22:00 08/05/24 21:03 10 MG Patient Own Medication 60 mg TID PO 08/05/24 22:00 Patient Own Medication 134 mg DAILY PO 08/06/24 10:00 Venlafaxine HCl 150 mg DAILY PO 08/06/24 10:00 08/06/24 08:54 150 MG Amitriptyline HCl 25 mg DAILY PO 08/06/24 10:00 08/06/24 08:54 25 MG Buspirone HCl 10 mg BID PO 08/05/24 22:00 08/06/24 08:54 10 MG Patient Own Medication 4 mg Q6HP PO 08/06/24 00:00 Ampicillin Sodium/ Sulbactam Sodium 3 gm/Sodium Chloride 100 ml @ 100 mls/hr Q6H IV 08/06/24 11:00 Vancomycin HCl 0 ml @ 0 mls/hr UD IV 08/06/24 10:45 UNV Laboratory Results Laboratory Tests 08/06/24 06:39 Chemistry Test 08/06/24 06:39 Albumin 3.6 g/dL (3.2-4.8) Calcium Level 9.0 mg/dL (8.7-10.4) Total Protein 6.8 g/dL (5.7-8.2) LFT Test 08/06/24 06:39 Alanine Aminotransferase (ALT) 10 U/L (7-40) Alkaline Phosphatase 97 U/L (46-116) Aspartate Amino Transferase (AST) 10 U/L (13-40) L Total Bilirubin 0.4 mg/dL (0.2-1.0) Urinalysis Test 08/05/24 20:45 Urine Color Colorless (Yellow) Urine Clarity Clear (Clear) Urine pH 7.5 (5.0-9.0) Urine Specific [place] 1.011 (1.001-1.035) Urine Protein Negative (Negative) Urine Ketones Trace (Negative) Urine Blood Negative /uL (Negative) Urine Nitrite Negative (Negative) Urine Bilirubin Negative (Negative) Urine Urobilinogen Normal mg/dL (Negative) Urine Leukocyte Esterase Negative /uL (Negative) Urine RBC <1 /hpf (0 - 3) Urine Microscopic WBC < 1 /HPF (0-3) Urine Squamous Epithelial Cells None seen /hpf (<5) Urine Bacteria None seen /hpf (None Seen) Urine Glucose 3+ mg/dL (Normal) H Assessment/Plan Assessment/Plan Right upper lobe pneumonia Possible right upper lobe lung abscess Rule out malignancy Type 2 diabetes Hypertension Coronary artery disease GERD Depression Tachycardia Sepsis due to the above Plan Continue IV antibiotics Switch to Unasyn and vancomycin Sputum culture Blood culture Urinalysis negative Pulmonary consultation Oxygen as needed Med neb treatments as needed Resume the home medications Monitor closely The rest of the management will depend on the hospital course Full code Advance directives discussed for 18 minutes Plan discussed with: Patient My Orders Orders - CAMERON MEMBRENO MD Procedure Category Date Status Time Ampicillin & PHA 08/06/24 In Process Sulbactam Sodium 11:00 Vancomycin Per PHA 08/06/24 Pending Pharmacy 10:45 Vancomycin 1gm/200ml PHA 08/06/24 In Process Pm 10:45 Date of Service: August 06, 2024 Billing Provider: CAMERON MEMBRENO MD Common Visit Codes: [id number] INP/OBS CARE(HIGH) Secondary Visit Codes: [id number] CARE PLAN 30 MINUTES CAMERON MEMBRENO MD August 06, 2024 11:07
[2024-08-06] MEDS: VANCOMYCIN 1GM/200ML PM 200 ML IV ONE (11:55)
[2024-08-06] MEDS: AMPICILLIN & SULBACTAM SODIUM 3 GM in SODIUM CHL 0.9% 100 ML IV SCH ×2 (15:34→21:29)
[2024-08-06] MEDS ORDERED: MET50T PO (19:09)
[2024-08-06] MEDS ORDERED: TIZA4CAP7 PO (19:09)
[2024-08-06] MEDS ORDERED: FENO1CAP4 OR (19:09)
--- NOTE | 2024-08-06 20:54 | DVHINCON2 ---
Date of service: August 05, [address] Blanco Reason for Consultation Acute respiratory failure History of Present Illness History Source: Patient Exam Limitations: No limitations HPI Patient is a 54-year old gentleman with a history of diabetes, hypertension and hyperlipidemia who presented with shortness of breath, cough and hemoptysis. Patient states he developed cold-like symptoms 3 months ago and has experienced intermittent shortness of breath and cough since. He reports onset of hemoptysis 10 days ago and received antibiotics as outpatient however presented back with persistent symptoms. CT of the chest demonstrated right upper lobe masslike consolidation with cavitation and the patient was admitted for further workup. Pulmonology was consulted to assist in management. Home Meds Reported Medications Tizanidine Hydrochloride (TIZANIDINE HCL) 4 Mg Cap, 4 MG PO HS, CAP 08/06/24 Metoprolol Tartrate (LOPRESSOR TABLET) 50 Mg Tb, 1 TAB PO BID, #60 TAB 5 Refills 08/06/24 Fenofibrate (FENOFIBRATE) 130 Mg Cap, 130 MG OR DAILY, CAP 08/06/24 Amitriptyline HCl (Amitriptyline Hydrochlori) 25 Mg Tab, 1 TAB PO 08/05/24 Docusate Sodium (Colace) 100 Mg Cap, 100 MG PO BID, CAP 04/29/24 Omeprazole (Gnp Omeprazole) 20 Mg Tab, 20 MG PO DAILY, TAB 04/29/24 Duloxetine Hcl (Cymbalta) 60 Mg Cap, 60 MG PO TID, CAP 04/29/24 Lorazepam (ATIVAN TABLET) 0.5 Mg Tb, 2 TAB PO TID, TAB 04/29/24 Mirtazapine (REMERON) 30 Mg Tab, 30 MG OR HS, TAB 04/29/24 Venlafaxine Hydrochloride (Effexor Xr) 150 Mg Cap, 150 MG PO DAILY, CAP 04/29/24 Famotidine (PEPCID TABLET) 20 Mg Tb, 40 MG PO HS, TAB 04/29/24 Meloxicam (Meloxicam) 15 Mg Tab, 15 MG PO DAILY, TAB 04/29/24 Buspirone Hcl (Buspirone Hcl) 5 Mg Tab, 10 MG PO BID, TAB 04/29/24 Nitroglycerin (Nitroglycerin Transdermal) 0.4 Mg/Hr Dis, 1 MG TD, DIS 04/29/24 Aspirin (Aspirin) 325 Mg Tab, 325 MG PO DAILY, TAB 04/29/24 Gabapentin (Gabapentin) 300 Mg Cap, 300 MG PO TID, CAP 04/29/24 [place] 3 Fatty Acids-[place] 6 Fa (SM OMEGA-3) Cap, 1 OR DAILY, CAP 04/29/24 Loratadine (Claritin) 10 Mg Tab, 10 MG PO DAILY, TAB 04/29/24 Atorvastatin Calcium (Lipitor) 10 Mg Tab, 10 MG PO DAILY, TAB 04/29/24 Insulin NPH (Human) (Isophane) (Novolin N Flexpen) 100 Unit/Ml Inj, 100 UNIT SC DAILY, INJ 04/29/24 Insulin Glargine (Basaglar Kwikpen) 100 Unit/Ml Inj, 100 UNIT SC DAILY, INJ 04/29/24 Amlodipine Besylate (Amlodipine Besylate) 5 Mg Tab, 5 MG PO DAILY, TAB 04/03/23 Discontinued Reported Medications Fenofibrate (Fenofibrate Micronized) 134 Mg Cap, 134 MG PO DAILY, CAP 04/29/24 Past Medical History Cardiac: HTN, Hyperlipidemia Pulmonary: No pertinent Hx Central Nervous System: No pertinent Hx GI: No pertinent Hx Hemotology/Oncology: No pertinent Hx Hepatobiliary: No pertinent Hx Psychiatric: No pertinent Hx Musculoskeletal: No pertinent Hx Rheumotologic: No pertinent Hx Infectious Disease: No peritnent Hx ENT: No pertinent Hx Renal/: No pertinent Hx Endocrine: NIDDM Dermatology: No pertinent Hx Past Surgical History: No pertinent Hx Family History: DM Patient Family History: Diabetes mellitus G8 MOTHER G8 FATHER Smoker: No Hx (Negative) Alocohol: None Drugs: None Lives with: With family Domestic Violence: Neg Review of Systems Constitutional: No symptom reported Ears, Nose, & Throat: No symptom reported Eyes: No symptom reported Pulmonary/Respiratory: Dyspnea, Cough, Other (hemoptysis ) Cardiovascular: No symptom reported Gastrointestinal: No symptom reported Genitourinary: No symptom reported Musculoskeletal: No symptom reported Skin: No symptom reported Psychiatric: No symptom reported Endocrine: No symptom reported Hemotologic/Lymphatic: No symptom reported H&P Exam Vital Signs Vital Signs Date Time Temp Pulse Resp B/P (MAP) Pulse Ox O2 Delivery O2 Flow Rate FiO2 08/06/24 20:00 Room Air* 0 21 08/06/24 16:50 98.2 62 16 104/69 (81) 96 98.2 General Appeara: Well developed, Well nourished, Normal Appearance Head Exam: Normal inspection Neck Exam: Normal inspection, Non-tender, Normal alignment Eye Exam: bilateral eye Normal inspection, bilateral eye PERRL, bilateral eye EOMI Ear Exam: bilateral ear Auricle normal, bilateral ear Canal normal, bilateral ear TM normal Nasal Exam: Normal inspection Mouth: Normal Inspection Pulmonary/Respiratory: Normal inspection, Normal breath sounds, Chest non- tender, Lungs clear Cardiovascular/Chest: Normal inspection, Regular rate, Normal Rhythm Peripheral Pulses: 4+ Radial (R), 4+ Radial (L), 4+ Brachial (R), 4+ Brachial (L) Abdominal Exam: Normal bowel sounds Labs/Xrays Labs Test 08/06/24 17:12 08/06/24 06:39 08/05/24 20:45 08/05/24 15:02 Range/Units POC Glucose 226 H 70-106 mg/dl White Blood Count 8.7 # 4.4-10.8 10^3/uL Red Blood Count 4.29 L 4.5-5.90 10^6/uL Hemoglobin 12.9 L 13.5-17.5 g/dL Hematocrit 37.4 L 41.0-53.0 % Mean Corpuscular Volume 87.0 80.0-100.0 fL Mean Corpuscular Hemoglobin 29.9 28.0-32.0 pg Mean Corpuscular Hemoglobin Concent 34.4 32.0-36.0 g/dL Red Cell Distribution Width 13.1 11.8-14.3 % Platelet Count 361 140-450 10^3/uL Mean Platelet Volume 7.1 6.9-10.8 fL Neutrophils (%) (Auto) 57.3 37.0-80.0 % Lymphocytes (%) (Auto) 30.4 10.0-50.0 % Monocytes (%) (Auto) 7.8 0.0-12.0 % Eosinophils (%) (Auto) 3.8 0.0-7.0 % Basophils (%) (Auto) 0.7 0.0-2.0 % Neutrophils # (Auto) 5.0 1.6-8.6 10 ^3/uL Lymphocytes # (Auto) 2.7 0.4-5.4 10 ^3/uL Monocytes # (Auto) 0.7 0-1.3 10 ^3/uL Eosinophils # (Auto) 0.3 0-0.8 10 ^3/uL Basophils # (Auto) 0.1 0-0.2 10 ^3/uL Nucleated Red Blood Cells 0.1 % Sodium Level 137 136-145 mmol/L Potassium Level 4.1 3.5-5.1 mmol/L Chloride Level 102 98-107 mmol/L Carbon Dioxide Level 26 20-31 mmol/L Anion Gap 9 5-15 Blood Urea Nitrogen < 5 L 9-23 mg/dL Creatinine 0.70 0.700-1.30 mg/dL Glomerular Filtration Rate Calc 111 >90 mL/min BUN/Creatinine Ratio 7.1 L 10.0-20.0 Serum Glucose 174 #H 74-106 mg/dL Calcium Level 9.0 8.7-10.4 mg/dL Total Bilirubin 0.4 0.2-1.0 mg/dL Aspartate Amino Transferase (AST) 10 L 13-40 U/L Alanine Aminotransferase (ALT) 10 7-40 U/L Alkaline Phosphatase 97 46-116 U/L Total Protein 6.8 5.7-8.2 g/dL Albumin 3.6 3.2-4.8 g/dL Urine Color Colorless Yellow Urine Clarity Clear Clear Urine pH 7.5 5.0-9.0 Urine Specific [place] 1.011 1.001-1.035 Urine Protein Negative Negative Urine Ketones Trace Negative Urine Blood Negative Negative /uL Urine Nitrite Negative Negative Urine Bilirubin Negative Negative Urine Urobilinogen Normal Negative mg/dL Urine Leukocyte Esterase Negative Negative /uL Urine RBC <1 0 - 3 /hpf Urine Microscopic WBC < 1 0-3 /HPF Urine Squamous Epithelial Cells None seen <5 /hpf Urine Bacteria None seen None Seen /hpf Urine Glucose 3+ H Normal mg/dL Urine Opiates Screen Pos NEGATIVE Urine Fentanyl Screen Neg NEGATIVE Urine Barbiturates Screen Neg NEGATIVE Urine Phencyclidine Screen Neg NEGATIVE Urine Amphetamines Screen Neg NEGATIVE Urine Benzodiazepines Screen Neg NEGATIVE Urine Cocaine Screen Neg NEGATIVE Urine Cannabinoids Screen Neg NEGATIVE Erythrocyte Sedimentation Rate 58 H 0-20 mm/hr C-Reactive Protein High Sensitivity 6.43 H <1.0 mg/dL Carcinoembryonic Antigen 1.46 <=5.0 ng/mL Test 08/05/24 08:03 Range/Units Prothrombin Time 10.3 9.3-11.8 sec Prothrombin Time INR 0.97 0.9-1.15 Activated Partial Thromboplast Time 25.1 24.5-34.5 SEC D-Dimer, Quantitative 0.95 H 0.0-0.49 mg/L FEU Hemoglobin A1c > 14.0 H <5.7 % A1C Magnesium Level 2.2 1.6-2.6 mg/dL [place] 125 Antigen 22.6 Not Estab. U/mL Assessment/Plan Plan Impression ? Lung abscess Hemoptysis Pneumonia Atelectasis Patient seen and examined Events Low oxygen requirements On room air Vital signs stable Labs and imaging reviewed CTA of the chest shows no evidence of PE Demonstrates masslike consolidation with cavitation in the right upper lobe extending into the right middle lobe Finding could represent cavitary pneumonia. Malignancy is not excluded. Management Supplemental oxygen as needed Titrate to maintain sats 92% or above Incentive spirometry Antibiotics and antifungals Start Fluconazole 200mg IV daily Recommend ID input Recommended prolonged course of antibiotics for lung abscess IV antibiotics, then transition to oral antibiotics Repeat CT of the chest 4-6 weeks Bronchodilators Monitor renal function Monitor electrolytes Supplement as needed DVT prophylaxis Plan discussed with: Patient CHANTELLE HUNTER MD August 06, 2024 20:54
--- NOTE | 2024-08-06 20:55 | DVHPN2 ---
Progress Note - Dictate Date Seen: August 06, 2024 Medical Necessity Reason Pt with a Central, PICC or Fol: No vital signs Vital Sign Date Time Temp Pulse Resp B/P (MAP) Pulse Ox O2 Delivery O2 Flow Rate FiO2 08/06/24 20:00 Room Air* 0 21 08/06/24 16:50 98.2 62 16 104/69 (81) 96 98.2 Total Intake and Output 08/05/24 08/05/24 08/06/24 14:59 22:59 06:59 Intake Total 250 ml 50 ml 240 ml Balance 250 ml 50 ml 240 ml medications Current Medications Medications Dose Ordered Sig/Edd Route Start Time Stop Time Status Last Admin Dose Admin Acetaminophen/ Hydrocodone Bitart 1 tab Q4HP PRN PO 08/05/24 14:30 Ondansetron HCl 4 mg Q4HP PRN IV 08/05/24 14:30 Acetaminophen 650 mg Q6HP PRN PO 08/05/24 14:30 Nitroglycerin 0.4 mg Q5MINP PRN SL 08/05/24 14:30 Morphine Sulfate 2 mg Q30M PRN IV 08/05/24 14:30 Diagnostic Test (Pha) 1 strip ACHS 08/05/24 17:00 08/06/24 17:20 1 STRIP Insulin Human Regular ACHS SC 08/05/24 17:00 08/06/24 17:29 4 UNITS Dextrose 50 ml UD PRN IV 08/05/24 14:30 Amlodipine Besylate 5 mg DAILY PO 08/06/24 10:00 08/06/24 08:55 5 MG Famotidine 40 mg HS PO 08/05/24 22:00 08/05/24 21:03 40 MG Gabapentin 300 mg TID PO 08/05/24 22:00 08/06/24 14:00 300 MG Loratadine 10 mg DAILY PO 08/06/24 10:00 08/06/24 08:53 10 MG Lorazepam 1 mg TID PO 08/05/24 22:00 08/06/24 14:00 1 MG Metoprolol Tartrate 50 mg DAILY PO 08/06/24 10:00 08/06/24 08:54 50 MG Mirtazapine 30 mg HS PO 08/05/24 22:00 08/05/24 21:03 30 MG Atorvastatin Calcium 10 mg HS PO 08/05/24 22:00 08/05/24 21:03 10 MG Patient Own Medication 60 mg TID PO 08/05/24 22:00 Patient Own Medication 134 mg DAILY PO 08/06/24 10:00 Venlafaxine HCl 150 mg DAILY PO 08/06/24 10:00 08/06/24 08:54 150 MG Amitriptyline HCl 25 mg DAILY PO 08/06/24 10:00 08/06/24 08:54 25 MG Buspirone HCl 10 mg BID PO 08/05/24 22:00 08/06/24 08:54 10 MG Patient Own Medication 4 mg Q6HP PO 08/06/24 00:00 Vancomycin HCl 0 ml @ 0 mls/hr UD IV 08/06/24 10:45 Vancomycin HCl 250 ml @ 200 mls/hr Q12H IV 08/07/24 00:00 Ampicillin Sodium/ Sulbactam Sodium 3 gm/Sodium Chloride 100 ml @ 100 mls/hr Q6H IV 08/06/24 21:30 laboratory and microbiology Laboratory Tests 08/06/24 06:39 Test 08/06/24 06:39 Range/Units Serum Glucose 174 #H 74-106 mg/dL Assessment/Plan Impression ? Lung abscess Hemoptysis Pneumonia Atelectasis Patient seen and examined Events Low oxygen requirements On room air No distress Labs and imaging reviewed CTA of the chest shows no evidence of PE Demonstrates masslike consolidation with cavitation in the right upper lobe extending into the right middle lobe Finding could represent cavitary pneumonia. Malignancy is not excluded. Management Supplemental oxygen as needed Titrate to maintain sats 92% or above Incentive spirometry Antibiotics and antifungals Fluconazole 200mg IV daily Recommend ID input Recommended prolonged course of antibiotics for lung abscess IV antibiotics, then transition to oral antibiotics Repeat CT of the chest 4-6 weeks Bronchodilators Monitor renal function Monitor electrolytes Supplement as needed DVT prophylaxis Dietary Evaluation Review Comments: No NVD symptoms, enjoyed food being service to him at [facility]. He also do some cooking such ass grilling at home. RD suggested pt to attend various physical activties that he could endure, and at the same reduce mental stress. eg, swimming. Expected Outcomes/Goals: controlled DM, maintain Wt, reduced mental stress. Plan discussed with: Patient CHANTELLE HUNTER MD August 06, 2024 20:55
[2024-08-06] MEDS: VANCOMYCIN 1.25GM/250ML 250 ML IV SCH (23:28)
[2024-08-07] VITALS (8 sets, daily range): BP systolic 94–124; BP diastolic 69–85; PULSE 90–106; RESP 16–28; TEMP 97.8–98.2; O2SAT 96–99
[2024-08-07 06:33] LABS: Alanine Aminotransferase 11 U/L (7-40); Albumin 3.7 g/dL (3.2-4.8); Alkaline Phosphatase 91 U/L (46-116); Anion Gap 9 (5-15); BUN/Creatinine Ratio 6.8 (10.0-20.0); Calcium 8.9 mg/dL (8.7-10.4); Carbon Dioxide 27 mmol/L (20-31); Chloride 103 mmol/L (98-107); Potassium 3.8 mmol/L (3.5-5.1); Sodium 139 mmol/L (136-145); Total Protein 6.9 g/dL (5.7-8.2)
[2024-08-07 06:41] LABS: Aspartate Aminotransferase 10 U/L (13-40); Bilirubin, Total 0.3 mg/dL (0.2-1.0); Blood Urea Nitrogen 5 mg/dL (9-23); Glucose 183 mg/dL (74-106)
[2024-08-07 06:51] LABS: Basophils # (auto) 0.1 10 ^3/uL (0-0.2); Basophils % (auto) 0.8 % (0.0-2.0); Eosinophils # (auto) 0.3 10 ^3/uL (0-0.8); Eosinophils % (auto) 4.3 % (0.0-7.0); Hematocrit 36.9 % (41.0-53.0); Hemoglobin 12.7 g/dL (13.5-17.5); Lymphocytes # (auto) 2.6 10 ^3/uL (0.4-5.4); Mean Corpuscular Hemoglobin 30.1 pg (28.0-32.0); Mean Corpuscular Hgb Conc. 34.5 g/dL (32.0-36.0); Mean Corpuscular Volume 87.3 fL (80.0-100.0); Monocytes # (auto) 0.6 10 ^3/uL (0-1.3); Monocytes % (auto) 8.1 % (0.0-12.0); Neutrophils # (auto) 3.7 10 ^3/uL (1.6-8.6); Neutrophils % (auto) 50.8 % (37.0-80.0); Nucleated Red Blood Cells % 0.1 %; Platelet Count (auto) 389 10^3/uL (140-450); Red Blood Cells 4.23 10^6/uL (4.5-5.90); Red Cell Distribution Width 13.3 % (11.8-14.3); White Blood Cell 7.3 10^3/uL (4.4-10.8)
--- NOTE | 2024-08-07 08:18 | MEDREC ---
[facility] ASP Intervention Section I [facility] ASP Intervention: Review courses of therapy (PATIENT HAS FINISHED LEVOFLOXACIN FOR 10 DAYS FOR PNEUMONIA AT HOME. PATIENT ADMITTED TO [facility] FOR SAME REASON. PLEASE CONSIDER SWITCHING UNASYN TO CEFEPIME OR ZOSYN TO COVER PSEUDOMONAS, PLUS ADDING DOXYCYCLINE TO COVER ATYPICAL IF CLINICALLY APPROPRIATE) JONATHAN BERUMEN August 07, 2024 08:18
[2024-08-07 10:18] LABS: Hepatitis B Surface Antibody Negative (Negative); Hepatitis C Antibody Negative (Negative)
[2024-08-07] MEDS: FLUCONAZOLE 200MG/100ML 100 ML IV SCH (10:49)
--- NOTE | 2024-08-07 11:21 | DVHPN2 ---
Subjective Better No new complaints No fever Changes from previous H/P or p: Changes Respiratory: Hemoptysis Objective Vitals Vital Signs Date Time Temp Pulse Resp B/P (MAP) Pulse Ox O2 Delivery O2 Flow Rate FiO2 08/07/24 09:32 94/69 08/07/24 09:00 98.1 106 18 98 98.1 08/07/24 08:00 Room Air* 0 21 Intake/Output Intake and Output 08/07/24 07:00 Intake Total 2620 ml Balance 2620 ml Intake Oral 820 ml IV Total 750 ml Tube Feeding 1050 ml # Voids 4 General Appearance: Alert, Oriented X3, Cooperative, No acute distress Lungs: Clear to auscultation, Normal air movement Cardiovascular: Regular rate, Normal S1, Normal S2 Abdomen: Normal bowel sounds, Soft, No tenderness Extremities: No edema Medications Current Medications Medications Dose Ordered Sig/Edd Route Start Time Stop Time Status Last Admin Dose Admin Acetaminophen/ Hydrocodone Bitart 1 tab Q4HP PRN PO 08/05/24 14:30 Ondansetron HCl 4 mg Q4HP PRN IV 08/05/24 14:30 Acetaminophen 650 mg Q6HP PRN PO 08/05/24 14:30 Nitroglycerin 0.4 mg Q5MINP PRN SL 08/05/24 14:30 Morphine Sulfate 2 mg Q30M PRN IV 08/05/24 14:30 Diagnostic Test (Pha) 1 strip ACHS 08/05/24 17:00 08/07/24 06:33 1 STRIP Insulin Human Regular ACHS SC 08/05/24 17:00 08/07/24 06:34 3 UNITS Dextrose 50 ml UD PRN IV 08/05/24 14:30 Amlodipine Besylate 5 mg DAILY PO 08/06/24 10:00 08/06/24 08:55 5 MG Famotidine 40 mg HS PO 08/05/24 22:00 08/06/24 21:24 40 MG Gabapentin 300 mg TID PO 08/05/24 22:00 08/07/24 06:16 300 MG Loratadine 10 mg DAILY PO 08/06/24 10:00 08/07/24 09:19 10 MG Lorazepam 1 mg TID PO 08/05/24 22:00 08/07/24 06:16 1 MG Metoprolol Tartrate 50 mg DAILY PO 08/06/24 10:00 08/06/24 08:54 50 MG Mirtazapine 30 mg HS PO 08/05/24 22:00 08/06/24 21:24 30 MG Atorvastatin Calcium 10 mg HS PO 08/05/24 22:00 08/06/24 21:25 10 MG Patient Own Medication 60 mg TID PO 08/05/24 22:00 Patient Own Medication 134 mg DAILY PO 08/06/24 10:00 Venlafaxine HCl 150 mg DAILY PO 08/06/24 10:00 08/07/24 09:30 150 MG Amitriptyline HCl 25 mg DAILY PO 08/06/24 10:00 08/07/24 09:20 25 MG Buspirone HCl 10 mg BID PO 08/05/24 22:00 08/07/24 09:19 10 MG Patient Own Medication 4 mg Q6HP PO 08/06/24 00:00 Vancomycin HCl 0 ml @ 0 mls/hr UD IV 08/06/24 10:45 Vancomycin HCl 250 ml @ 200 mls/hr Q12H IV 08/07/24 00:00 08/06/24 23:28 200 MLS/HR Fluconazole 100 ml @ 100 mls/hr DAILY IV 08/07/24 10:00 Piperacillin Sod/ Tazobactam Sod 100 ml @ 25 mls/hr Q6HR IV 08/07/24 12:00 Laboratory Results Laboratory Tests 08/07/24 05:00 Chemistry Test 08/07/24 05:00 Albumin 3.7 g/dL (3.2-4.8) Calcium Level 8.9 mg/dL (8.7-10.4) Magnesium Level 2.0 mg/dL (1.6-2.6) Total Protein 6.9 g/dL (5.7-8.2) LFT Test 08/07/24 05:00 Alanine Aminotransferase (ALT) 11 U/L (7-40) Alkaline Phosphatase 91 U/L (46-116) Aspartate Amino Transferase (AST) 10 U/L (13-40) L Total Bilirubin 0.3 mg/dL (0.2-1.0) Urinalysis Test 08/05/24 20:45 Urine Color Colorless (Yellow) Urine Clarity Clear (Clear) Urine pH 7.5 (5.0-9.0) Urine Specific [place] 1.011 (1.001-1.035) Urine Protein Negative (Negative) Urine Ketones Trace (Negative) Urine Blood Negative /uL (Negative) Urine Nitrite Negative (Negative) Urine Bilirubin Negative (Negative) Urine Urobilinogen Normal mg/dL (Negative) Urine Leukocyte Esterase Negative /uL (Negative) Urine RBC <1 /hpf (0 - 3) Urine Microscopic WBC < 1 /HPF (0-3) Urine Squamous Epithelial Cells None seen /hpf (<5) Urine Bacteria None seen /hpf (None Seen) Urine Glucose 3+ mg/dL (Normal) H Assessment/Plan Assessment/Plan Right upper lobe pneumonia Possible right upper lobe lung abscess Rule out malignancy Type 2 diabetes Hypertension Coronary artery disease GERD Depression Tachycardia Sepsis due to the above Plan Continue IV antibiotics Switch to Unasyn and vancomycin Sputum culture Blood culture Urinalysis negative Pulmonary consultation Oxygen as needed Med neb treatments as needed Resume the home medications Monitor closely The rest of the management will depend on the hospital course Full code Advance directives discussed for 18 minutes 08/07/2024: IV antibiotics Zosyn and vancomycin Diflucan IV Pulmonary consultation is appreciated, recommended to continue IV antibiotics Cook see HARRELL this antibody is pending Hepatitis B surface antibody and hepatitis-C antibody is negative Continue the home medications Monitor closely Plan discussed with: Patient My Orders Orders - CAMERON MEMBRENO MD Procedure Category Date Status Time Vancomycin,Trough LAB 08/08/24 Verified 11:00 Vancomycin Per SAIMA 08/08/24 In Process Pharmacy Protoc 11:00 Vancomycin PHA 08/07/24 In Process 1.25gm/250ml 00:00 Piperacillin-Tazob PHA 08/07/24 In Process 3.375gm (Zosyn 3.375g 12:00 Date of Service: August 07, 2024 Billing Provider: CAMERON MEMBRENO MD Common Visit Codes: [id number] INP/OBS CARE(HIGH) CAMERON MEMBRENO MD August 07, 2024 11:21
[2024-08-07] MEDS: PIPERACILLIN-TAZOB 3.375GM 100 ML IV SCH (12:49)
--- NOTE | 2024-08-07 14:48 | DVHPN2 ---
Progress Note - Dictate Date Seen: August 07, 2024 Medical Necessity Reason Pt with a Central, PICC or Fol: No vital signs Vital Sign Date Time Temp Pulse Resp B/P (MAP) Pulse Ox O2 Delivery O2 Flow Rate FiO2 08/07/24 13:00 98.0 98 18 124/83 (97) 98 98.0 08/07/24 08:00 Room Air* 0 21 Total Intake and Output 08/06/24 08/06/24 08/07/24 15:00 23:00 07:00 Intake Total 200 ml 1250 ml 1170 ml Balance 200 ml 1250 ml 1170 ml medications Current Medications Medications Dose Ordered Sig/Edd Route Start Time Stop Time Status Last Admin Dose Admin Acetaminophen/ Hydrocodone Bitart 1 tab Q4HP PRN PO 08/05/24 14:30 Ondansetron HCl 4 mg Q4HP PRN IV 08/05/24 14:30 Acetaminophen 650 mg Q6HP PRN PO 08/05/24 14:30 Nitroglycerin 0.4 mg Q5MINP PRN SL 08/05/24 14:30 Morphine Sulfate 2 mg Q30M PRN IV 08/05/24 14:30 Diagnostic Test (Pha) 1 strip ACHS 08/05/24 17:00 08/07/24 10:57 1 STRIP Insulin Human Regular ACHS SC 08/05/24 17:00 08/07/24 11:19 4 UNITS Dextrose 50 ml UD PRN IV 08/05/24 14:30 Amlodipine Besylate 5 mg DAILY PO 08/06/24 10:00 08/06/24 08:55 5 MG Famotidine 40 mg HS PO 08/05/24 22:00 08/06/24 21:24 40 MG Gabapentin 300 mg TID PO 08/05/24 22:00 08/07/24 06:16 300 MG Loratadine 10 mg DAILY PO 08/06/24 10:00 08/07/24 09:19 10 MG Lorazepam 1 mg TID PO 08/05/24 22:00 08/07/24 06:16 1 MG Metoprolol Tartrate 50 mg DAILY PO 08/06/24 10:00 08/06/24 08:54 50 MG Mirtazapine 30 mg HS PO 08/05/24 22:00 08/06/24 21:24 30 MG Atorvastatin Calcium 10 mg HS PO 08/05/24 22:00 08/06/24 21:25 10 MG Patient Own Medication 60 mg TID PO 08/05/24 22:00 Patient Own Medication 134 mg DAILY PO 08/06/24 10:00 Venlafaxine HCl 150 mg DAILY PO 08/06/24 10:00 08/07/24 09:30 150 MG Amitriptyline HCl 25 mg DAILY PO 08/06/24 10:00 08/07/24 09:20 25 MG Buspirone HCl 10 mg BID PO 08/05/24 22:00 08/07/24 09:19 10 MG Patient Own Medication 4 mg Q6HP PO 08/06/24 00:00 Vancomycin HCl 0 ml @ 0 mls/hr UD IV 08/06/24 10:45 Vancomycin HCl 250 ml @ 200 mls/hr Q12H IV 08/07/24 00:00 08/07/24 11:52 200 MLS/HR Fluconazole 100 ml @ 100 mls/hr DAILY IV 08/07/24 10:00 08/07/24 10:49 100 MLS/HR Piperacillin Sod/ Tazobactam Sod 100 ml @ 25 mls/hr Q6HR IV 08/07/24 12:00 08/07/24 12:49 25 MLS/HR laboratory and microbiology Laboratory Tests 08/07/24 05:00 Test 08/07/24 05:00 Range/Units Serum Glucose 183 H 74-106 mg/dL Assessment/Plan Impression ? Lung abscess Hemoptysis Pneumonia Atelectasis Patient seen and examined Events Low oxygen requirements On room air No acute events Labs and imaging reviewed CTA of the chest shows no evidence of PE Demonstrates masslike consolidation with cavitation in the right upper lobe extending into the right middle lobe Finding could represent cavitary pneumonia. Malignancy is not excluded. Labs reviewed HIV panel pending Coccidiomycosis antibodies pending Management Supplemental oxygen as needed Titrate to maintain sats 92% or above Incentive spirometry Antibiotics and antifungals F/u cultures Recommend ID input Recommended prolonged course of antibiotics for lung abscess IV antibiotics, then transition to oral antibiotics Repeat CT of the chest 4-6 weeks Bronchodilators Monitor renal function Monitor electrolytes Supplement as needed DVT prophylaxis Dietary Evaluation Review Comments: No NVD symptoms, enjoyed food being service to him at [facility]. He also do some cooking such ass grilling at home. RD suggested pt to attend various physical activties that he could endure, and at the same reduce mental stress. eg, swimming. Expected Outcomes/Goals: controlled DM, maintain Wt, reduced mental stress. Plan discussed with: Patient CHANTELLE HUNTER MD August 07, 2024 14:48
[2024-08-08] VITALS (8 sets, daily range): BP systolic 97–120; BP diastolic 63–85; PULSE 74–97; RESP 17–18; TEMP 97.7–98.2; O2SAT 97–99
[2024-08-08] MEDS: INSULIN LANTUS (GLARGINE) 1 /0.01ml (100units/ml) SC ONE (10:00)
--- NOTE | 2024-08-08 16:26 | DVHPN2 ---
Progress Note - Dictate Date Seen: August 08, 2024 Medical Necessity Reason Pt with a Central, PICC or Fol: No vital signs Vital Sign Date Time Temp Pulse Resp B/P (MAP) Pulse Ox O2 Delivery O2 Flow Rate FiO2 08/08/24 13:00 97.9 74 18 116/80 (92) 98 97.9 08/08/24 08:00 Room Air* 0 21 Total Intake and Output 08/07/24 08/07/24 08/08/24 15:00 23:00 07:00 Intake Total 350 ml 640 ml 890 ml Balance 350 ml 640 ml 890 ml medications Current Medications Medications Dose Ordered Sig/Edd Route Start Time Stop Time Status Last Admin Dose Admin Acetaminophen/ Hydrocodone Bitart 1 tab Q4HP PRN PO 08/05/24 14:30 Ondansetron HCl 4 mg Q4HP PRN IV 08/05/24 14:30 Acetaminophen 650 mg Q6HP PRN PO 08/05/24 14:30 Nitroglycerin 0.4 mg Q5MINP PRN SL 08/05/24 14:30 Morphine Sulfate 2 mg Q30M PRN IV 08/05/24 14:30 Diagnostic Test (Pha) 1 strip ACHS 08/05/24 17:00 08/08/24 11:30 1 STRIP Insulin Human Regular ACHS SC 08/05/24 17:00 08/08/24 11:30 6 UNITS Dextrose 50 ml UD PRN IV 08/05/24 14:30 Amlodipine Besylate 5 mg DAILY PO 08/06/24 10:00 08/08/24 09:54 5 MG Famotidine 40 mg HS PO 08/05/24 22:00 08/07/24 22:08 40 MG Gabapentin 300 mg TID PO 08/05/24 22:00 08/08/24 14:21 300 MG Loratadine 10 mg DAILY PO 08/06/24 10:00 08/08/24 09:53 10 MG Lorazepam 1 mg TID PO 08/05/24 22:00 08/08/24 14:21 1 MG Metoprolol Tartrate 50 mg DAILY PO 08/06/24 10:00 08/08/24 09:54 50 MG Mirtazapine 30 mg HS PO 08/05/24 22:00 08/07/24 22:08 30 MG Atorvastatin Calcium 10 mg HS PO 08/05/24 22:00 08/07/24 22:08 10 MG Patient Own Medication 60 mg TID PO 08/05/24 22:00 Patient Own Medication 134 mg DAILY PO 08/06/24 10:00 Venlafaxine HCl 150 mg DAILY PO 08/06/24 10:00 08/08/24 09:53 150 MG Amitriptyline HCl 25 mg DAILY PO 08/06/24 10:00 08/08/24 09:53 25 MG Buspirone HCl 10 mg BID PO 08/05/24 22:00 08/08/24 10:01 10 MG Patient Own Medication 4 mg Q6HP PO 08/06/24 00:00 Vancomycin HCl 0 ml @ 0 mls/hr UD IV 08/06/24 10:45 Vancomycin HCl 250 ml @ 200 mls/hr Q12H IV 08/07/24 00:00 08/08/24 12:00 200 MLS/HR Fluconazole 100 ml @ 100 mls/hr DAILY IV 08/07/24 10:00 08/08/24 09:53 100 MLS/HR Piperacillin Sod/ Tazobactam Sod 100 ml @ 25 mls/hr Q6HR IV 08/07/24 12:00 08/08/24 14:21 25 MLS/HR Insulin Glargine 10 units BID@0700,2200 SC 08/08/24 22:00 laboratory and microbiology Laboratory Tests 08/08/24 11:16 08/07/24 05:00 Test 08/07/24 05:00 Range/Units Serum Glucose 183 H 74-106 mg/dL Assessment/Plan Impression ? Lung abscess Hemoptysis Pneumonia Atelectasis Patient seen and examined Events Low oxygen requirements On room air No distress Labs and imaging reviewed CTA of the chest shows no evidence of PE Demonstrates masslike consolidation with cavitation in the right upper lobe extending into the right middle lobe Finding could represent cavitary pneumonia. Malignancy is not excluded. Labs reviewed HIV panel pending Coccidiomycosis antibodies pending Management Supplemental oxygen as needed Titrate to maintain sats 92% or above Incentive spirometry Antibiotics and antifungals F/u cultures Recommend ID input Recommended prolonged course of antibiotics for lung abscess IV antibiotics, then transition to oral antibiotics Bronchodilators Monitor renal function Monitor electrolytes Supplement as needed Okay to discharge from pulmonary standpoint Recommend repeat CT of the chest 4-6 weeks DVT prophylaxis Dietary Evaluation Review Comments: No NVD symptoms, enjoyed food being service to him at [facility]. He also do some cooking such ass grilling at home. RD suggested pt to attend various physical activties that he could endure, and at the same reduce mental stress. eg, swimming. Expected Outcomes/Goals: controlled DM, maintain Wt, reduced mental stress. Plan discussed with: Patient CHANTELLE HUNTER MD August 08, 2024 16:26
--- NOTE | 2024-08-08 16:31 | DVHPN2 ---
Subjective Feeling better No hemoptysis no cough On room air Changes from previous H/P or p: Changes Respiratory: Hemoptysis Objective Vitals Vital Signs Date Time Temp Pulse Resp B/P (MAP) Pulse Ox O2 Delivery O2 Flow Rate FiO2 08/08/24 13:00 97.9 74 18 116/80 (92) 98 97.9 08/08/24 08:00 Room Air* 0 21 Intake/Output Intake and Output 08/08/24 07:00 Intake Total 1880 ml Balance 1880 ml Intake Oral 1080 ml IV Total 800 ml # Voids 4 # Bowel Movements 1 General Appearance: Alert, Oriented X3, Cooperative, No acute distress Lungs: Clear to auscultation, Normal air movement Cardiovascular: Regular rate, Normal S1, Normal S2 Abdomen: Normal bowel sounds, Soft, No tenderness Extremities: No edema Medications Current Medications Medications Dose Ordered Sig/Edd Route Start Time Stop Time Status Last Admin Dose Admin Acetaminophen/ Hydrocodone Bitart 1 tab Q4HP PRN PO 08/05/24 14:30 Ondansetron HCl 4 mg Q4HP PRN IV 08/05/24 14:30 Acetaminophen 650 mg Q6HP PRN PO 08/05/24 14:30 Nitroglycerin 0.4 mg Q5MINP PRN SL 08/05/24 14:30 Morphine Sulfate 2 mg Q30M PRN IV 08/05/24 14:30 Diagnostic Test (Pha) 1 strip ACHS 08/05/24 17:00 08/08/24 11:30 1 STRIP Insulin Human Regular ACHS SC 08/05/24 17:00 08/08/24 11:30 6 UNITS Dextrose 50 ml UD PRN IV 08/05/24 14:30 Amlodipine Besylate 5 mg DAILY PO 08/06/24 10:00 08/08/24 09:54 5 MG Famotidine 40 mg HS PO 08/05/24 22:00 08/07/24 22:08 40 MG Gabapentin 300 mg TID PO 08/05/24 22:00 08/08/24 14:21 300 MG Loratadine 10 mg DAILY PO 08/06/24 10:00 08/08/24 09:53 10 MG Lorazepam 1 mg TID PO 08/05/24 22:00 08/08/24 14:21 1 MG Metoprolol Tartrate 50 mg DAILY PO 08/06/24 10:00 08/08/24 09:54 50 MG Mirtazapine 30 mg HS PO 08/05/24 22:00 08/07/24 22:08 30 MG Atorvastatin Calcium 10 mg HS PO 08/05/24 22:00 08/07/24 22:08 10 MG Patient Own Medication 60 mg TID PO 08/05/24 22:00 Patient Own Medication 134 mg DAILY PO 08/06/24 10:00 Venlafaxine HCl 150 mg DAILY PO 08/06/24 10:00 08/08/24 09:53 150 MG Amitriptyline HCl 25 mg DAILY PO 08/06/24 10:00 08/08/24 09:53 25 MG Buspirone HCl 10 mg BID PO 08/05/24 22:00 08/08/24 10:01 10 MG Patient Own Medication 4 mg Q6HP PO 08/06/24 00:00 Vancomycin HCl 0 ml @ 0 mls/hr UD IV 08/06/24 10:45 Vancomycin HCl 250 ml @ 200 mls/hr Q12H IV 08/07/24 00:00 08/08/24 12:00 200 MLS/HR Fluconazole 100 ml @ 100 mls/hr DAILY IV 08/07/24 10:00 08/08/24 09:53 100 MLS/HR Piperacillin Sod/ Tazobactam Sod 100 ml @ 25 mls/hr Q6HR IV 08/07/24 12:00 08/08/24 14:21 25 MLS/HR Insulin Glargine 10 units BID@0700,2200 SC 08/08/24 22:00 Laboratory Results Laboratory Tests 08/07/24 05:00 08/08/24 11:16 Urinalysis Test 08/05/24 20:45 Urine Color Colorless (Yellow) Urine Clarity Clear (Clear) Urine pH 7.5 (5.0-9.0) Urine Specific [place] 1.011 (1.001-1.035) Urine Protein Negative (Negative) Urine Ketones Trace (Negative) Urine Blood Negative /uL (Negative) Urine Nitrite Negative (Negative) Urine Bilirubin Negative (Negative) Urine Urobilinogen Normal mg/dL (Negative) Urine Leukocyte Esterase Negative /uL (Negative) Urine RBC <1 /hpf (0 - 3) Urine Microscopic WBC < 1 /HPF (0-3) Urine Squamous Epithelial Cells None seen /hpf (<5) Urine Bacteria None seen /hpf (None Seen) Urine Glucose 3+ mg/dL (Normal) H Microbiology Microbiology Date/Time Source Procedure Growth Status 08/06/24 11:37 Blood Blood Culture - Preliminary NO GROWTH AFTER 48 HOURS OF INCUBATION. Resulted Assessment/Plan Assessment/Plan Right upper lobe pneumonia Possible right upper lobe lung abscess Rule out malignancy Type 2 diabetes Hypertension Coronary artery disease GERD Depression Tachycardia Sepsis due to the above Plan Continue IV antibiotics Switch to Unasyn and vancomycin Sputum culture Blood culture Urinalysis negative Pulmonary consultation Oxygen as needed Med neb treatments as needed Resume the home medications Monitor closely The rest of the management will depend on the hospital course Full code Advance directives discussed for 18 minutes 08/07/2024: IV antibiotics Zosyn and vancomycin Diflucan IV Pulmonary consultation is appreciated, recommended to continue IV antibiotics Cook see HARRELL this antibody is pending Hepatitis B surface antibody and hepatitis-C antibody is negative Continue the home medications Monitor closely 08/08/2024: Continue IV antibiotics Zosyn and vancomycin and Diflucan Oxygen as needed Continue the current management as inpatient for 1 more day We will discharge home possibly tomorrow on oral antibiotics Monitor closely Type 2 diabetes with hyperglycemia: Start Lantus 10 units twice a day Plan discussed with: Patient My Orders Orders - CAMERON MEMBRENO MD Procedure Category Date Status Time Insulin Lantus PHA 08/08/24 In Process (Glargine) (Lantus) 22:00 Complete Blood Count LAB 08/09/24 Verified 04:00 Creatinine LAB 08/09/24 Verified 04:00 Vancomycin,Trough LAB 08/10/24 Verified 11:00 Vancomycin Per SAIMA 08/08/24 In Process [facility] 16:12 Date of Service: August 08, 2024 Billing Provider: CAMERON MEMBRENO MD Common Visit Codes: [id number] INP/OBS CARE(HIGH) CAMERON MEMBRENO MD August 08, 2024 16:31
[2024-08-08] MEDS: PIPERACILLIN-TAZOB 3.375GM 100 ML IV SCH (21:34)
[2024-08-08] MEDS: INSULIN LANTUS (GLARGINE) 1 /0.01ml (100units/ml) SC SCH (21:55)
[2024-08-09 01:00] VITALS: BP 90/64; PULSE 99; RESP 17; TEMP 98.1; O2SAT 98
[2024-08-09 05:00] VITALS: BP 93/69; PULSE 98; RESP 16; TEMP 97.5; O2SAT 97
[2024-08-09 08:00] VITALS: PULSE 86
[2024-08-09 08:00] LABS: Basophils # (auto) 0.1 10 ^3/uL (0-0.2); Basophils % (auto) 1.4 % (0.0-2.0); Eosinophils # (auto) 0.3 10 ^3/uL (0-0.8); Eosinophils % (auto) 3.4 % (0.0-7.0); Hematocrit 39.6 % (41.0-53.0); Hemoglobin 13.3 g/dL (13.5-17.5); Lymphocytes # (auto) 2.8 10 ^3/uL (0.4-5.4); Mean Corpuscular Hemoglobin 29.5 pg (28.0-32.0); Mean Corpuscular Hgb Conc. 33.7 g/dL (32.0-36.0); Mean Corpuscular Volume 87.6 fL (80.0-100.0); Monocytes # (auto) 0.7 10 ^3/uL (0-1.3); Neutrophils # (auto) 4.9 10 ^3/uL (1.6-8.6); Neutrophils % (auto) 55.2 % (37.0-80.0); Nucleated Red Blood Cells % 0.1 %; Platelet Count (auto) 407 10^3/uL (140-450); Red Blood Cells 4.52 10^6/uL (4.5-5.90); Red Cell Distribution Width 13.3 % (11.8-14.3); White Blood Cell 8.8 10^3/uL (4.4-10.8)
[2024-08-09 08:41] VITALS: BP 105/73; PULSE 92; RESP 18; TEMP 97.9; O2SAT 98
--- NOTE | 2024-08-09 10:15 | DVHPN2 ---
Progress Note - Dictate Date Seen: August 09, 2024 Medical Necessity Reason Pt with a Central, PICC or Fol: No vital signs Vital Sign Date Time Temp Pulse Resp B/P (MAP) Pulse Ox O2 Delivery O2 Flow Rate FiO2 08/09/24 08:41 97.9 92 18 105/73 (84) 98 97.9 08/09/24 08:00 Room Air* 0 21 Total Intake and Output 08/08/24 08/08/24 08/09/24 15:00 23:00 07:00 Intake Total 730 ml 340 ml 875 ml Balance 730 ml 340 ml 875 ml medications Current Medications Medications Dose Ordered Sig/Edd Route Start Time Stop Time Status Last Admin Dose Admin Acetaminophen/ Hydrocodone Bitart 1 tab Q4HP PRN PO 08/05/24 14:30 Ondansetron HCl 4 mg Q4HP PRN IV 08/05/24 14:30 Acetaminophen 650 mg Q6HP PRN PO 08/05/24 14:30 Nitroglycerin 0.4 mg Q5MINP PRN SL 08/05/24 14:30 Morphine Sulfate 2 mg Q30M PRN IV 08/05/24 14:30 Diagnostic Test (Pha) 1 strip ACHS 08/05/24 17:00 08/09/24 06:28 1 STRIP Insulin Human Regular ACHS SC 08/05/24 17:00 08/08/24 21:55 3 UNITS Dextrose 50 ml UD PRN IV 08/05/24 14:30 Amlodipine Besylate 5 mg DAILY PO 08/06/24 10:00 08/08/24 09:54 5 MG Famotidine 40 mg HS PO 08/05/24 22:00 08/08/24 21:33 40 MG Gabapentin 300 mg TID PO 08/05/24 22:00 08/09/24 05:54 300 MG Loratadine 10 mg DAILY PO 08/06/24 10:00 08/08/24 09:53 10 MG Lorazepam 1 mg TID PO 08/05/24 22:00 08/09/24 05:54 1 MG Metoprolol Tartrate 50 mg DAILY PO 08/06/24 10:00 08/08/24 09:54 50 MG Mirtazapine 30 mg HS PO 08/05/24 22:00 08/08/24 21:33 30 MG Atorvastatin Calcium 10 mg HS PO 08/05/24 22:00 08/08/24 21:34 10 MG Patient Own Medication 60 mg TID PO 08/05/24 22:00 Patient Own Medication 134 mg DAILY PO 08/06/24 10:00 Venlafaxine HCl 150 mg DAILY PO 08/06/24 10:00 08/08/24 09:53 150 MG Amitriptyline HCl 25 mg DAILY PO 08/06/24 10:00 08/08/24 09:53 25 MG Buspirone HCl 10 mg BID PO 08/05/24 22:00 08/08/24 21:34 10 MG Patient Own Medication 4 mg Q6HP PO 08/06/24 00:00 Vancomycin HCl 0 ml @ 0 mls/hr UD IV 08/06/24 10:45 Vancomycin HCl 250 ml @ 200 mls/hr Q12H IV 08/07/24 00:00 08/09/24 00:28 200 MLS/HR Fluconazole 100 ml @ 100 mls/hr DAILY IV 08/07/24 10:00 08/08/24 09:53 100 MLS/HR Insulin Glargine 10 units BID@0700,2200 SC 08/08/24 22:00 08/09/24 06:48 10 UNITS Piperacillin Sod/ Tazobactam Sod 100 ml @ 25 mls/hr Q8HR IV 08/08/24 22:00 08/09/24 06:28 25 MLS/HR laboratory and microbiology Laboratory Tests 08/09/24 07:40 08/07/24 05:00 Test 08/07/24 05:00 Range/Units Serum Glucose 183 H 74-106 mg/dL Assessment/Plan Impression ? Lung abscess Hemoptysis Pneumonia Atelectasis Patient seen and examined Events Low oxygen requirements On room air No acute events Labs and imaging reviewed CTA of the chest shows no evidence of PE Demonstrates masslike consolidation with cavitation in the right upper lobe extending into the right middle lobe Finding could represent cavitary pneumonia. Malignancy is not excluded. Labs reviewed HIV panel negative Coccidiomycosis antibodies pending Management Supplemental oxygen as needed Titrate to maintain sats 92% or above Incentive spirometry Antibiotics and antifungals F/u cultures Recommend ID input Recommended prolonged course of antibiotics for lung abscess IV antibiotics, then transition to oral antibiotics Bronchodilators Monitor renal function Monitor electrolytes Supplement as needed Okay to discharge from pulmonary standpoint Recommend repeat CT of the chest 4-6 weeks DVT prophylaxis Dietary Evaluation Review Comments: No NVD symptoms, enjoyed food being service to him at [facility]. He also do some cooking such ass grilling at home. RD suggested pt to attend various physical activties that he could endure, and at the same reduce mental stress. eg, swimming. Expected Outcomes/Goals: controlled DM, maintain Wt, reduced mental stress. Plan discussed with: Patient CHNATELLE HUNTER MD August 09, 2024 10:15
[2024-08-09 10:36] VITALS: PULSE 103
[2024-08-09] MEDS ORDERED: FLUC200T PO (11:31)
[2024-08-09] MEDS ORDERED: DOXY1CAP57 PO (11:31)
[2024-08-09] MEDS ORDERED: AUG875T PO (11:31)
[2024-08-09 12:44] VITALS: BP 118/83; PULSE 98; RESP 18; TEMP 97.9; O2SAT 96
--- NOTE | 2024-08-09 13:44 | DVHDS2 ---
Discharge Summary Date of Admission August 05, 2024 at 14:24 Date of Discharge: August 09, 2024 Labs/Diagnostic Data: Laboratory Results Test 08/09/24 11:21 08/09/24 07:40 08/08/24 11:16 08/07/24 05:00 POC Glucose 317 mg/dl (70-106) White Blood Count 8.8 10^3/uL (4.4-10.8) Red Blood Count 4.52 10^6/uL (4.5-5.90) Hemoglobin 13.3 g/dL (13.5-17.5) Hematocrit 39.6 % (41.0-53.0) Mean Corpuscular Volume 87.6 fL (80.0-100.0) Mean Corpuscular Hemoglobin 29.5 pg (28.0-32.0) Mean Corpuscular Hemoglobin Concent 33.7 g/dL (32.0-36.0) Red Cell Distribution Width 13.3 % (11.8-14.3) Platelet Count 407 10^3/uL (140-450) Mean Platelet Volume 6.4 fL (6.9-10.8) Neutrophils (%) (Auto) 55.2 % (37.0-80.0) Lymphocytes (%) (Auto) 32.0 % (10.0-50.0) Monocytes (%) (Auto) 8.0 % (0.0-12.0) Eosinophils (%) (Auto) 3.4 % (0.0-7.0) Basophils (%) (Auto) 1.4 % (0.0-2.0) Neutrophils # (Auto) 4.9 10 ^3/uL (1.6-8.6) Lymphocytes # (Auto) 2.8 10 ^3/uL (0.4-5.4) Monocytes # (Auto) 0.7 10 ^3/uL (0-1.3) Eosinophils # (Auto) 0.3 10 ^3/uL (0-0.8) Basophils # (Auto) 0.1 10 ^3/uL (0-0.2) Nucleated Red Blood Cells 0.1 % Creatinine 0.92 mg/dL (0.700-1.30) Glomerular Filtration Rate Calc 100 mL/min (>90) Vancomycin Level Trough 14.5 ug/mL (5-10) Sodium Level 139 mmol/L (136-145) Potassium Level 3.8 mmol/L (3.5-5.1) Chloride Level 103 mmol/L (98-107) Carbon Dioxide Level 27 mmol/L (20-31) Anion Gap 9 (5-15) Blood Urea Nitrogen 5 mg/dL (9-23) BUN/Creatinine Ratio 6.8 (10.0-20.0) Serum Glucose 183 mg/dL (74-106) Calcium Level 8.9 mg/dL (8.7-10.4) Magnesium Level 2.0 mg/dL (1.6-2.6) Total Bilirubin 0.3 mg/dL (0.2-1.0) Aspartate Amino Transferase (AST) 10 U/L (13-40) Alanine Aminotransferase (ALT) 11 U/L (7-40) Alkaline Phosphatase 91 U/L (46-116) Total Protein 6.9 g/dL (5.7-8.2) Albumin 3.7 g/dL (3.2-4.8) Test 08/06/24 21:09 08/05/24 20:45 08/05/24 15:02 08/05/24 08:03 HIV (1&2) Antibody Negative (Negative) Urine Color Colorless (Yellow) Urine Clarity Clear (Clear) Urine pH 7.5 (5.0-9.0) Urine Specific [place] 1.011 (1.001-1.035) Urine Protein Negative (Negative) Urine Ketones Trace (Negative) Urine Blood Negative /uL (Negative) Urine Nitrite Negative (Negative) Urine Bilirubin Negative (Negative) Urine Urobilinogen Normal mg/dL (Negative) Urine Leukocyte Esterase Negative /uL (Negative) Urine RBC <1 /hpf (0 - 3) Urine Microscopic WBC < 1 /HPF (0-3) Urine Squamous Epithelial Cells None seen /hpf (<5) Urine Bacteria None seen /hpf (None Seen) Urine Glucose 3+ mg/dL (Normal) Urine Opiates Screen Pos (NEGATIVE) Urine Fentanyl Screen Neg (NEGATIVE) Urine Barbiturates Screen Neg (NEGATIVE) Urine Phencyclidine Screen Neg (NEGATIVE) Urine Amphetamines Screen Neg (NEGATIVE) Urine Benzodiazepines Screen Neg (NEGATIVE) Urine Cocaine Screen Neg (NEGATIVE) Urine Cannabinoids Screen Neg (NEGATIVE) Erythrocyte Sedimentation Rate 58 mm/hr (0-20) C-Reactive Protein High Sensitivity 6.43 mg/dL (<1.0) Carcinoembryonic Antigen 1.46 ng/mL (<=5.0) Hepatitis B Surface Antibody Negative (Negative) Hepatitis C Antibody Negative (Negative) Prothrombin Time 10.3 sec (9.3-11.8) Prothrombin Time INR 0.97 (0.9-1.15) Activated Partial Thromboplast Time 25.1 SEC (24.5-34.5) D-Dimer, Quantitative 0.95 mg/L FEU (0.0-0.49) Hemoglobin A1c > 14.0 % A1C (<5.7) CA 125 Antigen 22.6 U/mL (Not Estab.) Other Laboratory Tests 08/09/24 07:40 08/07/24 05:00 Brief Hx & Hospital Course: Final diagnoses: Right upper lobe pneumonia Right upper lobe lung abscess Type 2 diabetes Hypertension Coronary artery disease GERD Depression Tachycardia Sepsis due to the above 54-year-old male who was admitted for cough and hemoptysis and shortness of breaths He was diagnosed with a lung abscess He was started on IV antibiotics He was given IV Zosyn and vancomycin and IV fluconazole Since he was admitted he improved and he had no more hemoptysis His cough is better He is afebrile Otherwise he is asymptomatic He was seen by Pulmonary consult and was recommended to discharge the patient home on oral antibiotics for 2 weeks He will be discharged on Augmentin and doxycycline and Diflucan for 2 weeks Follow up with Dr. Ron Cordon in 2-4 weeks to get a follow up CT scan as an outpatient Resume home medications Condition at Discharge: Stable Final Diagnosis/Problems List Right upper lobe pneumonia Right upper lobe lung abscess Type 2 diabetes Hypertension Coronary artery disease GERD Depression Tachycardia Sepsis due to the above Discharge Disposition: Home SNF Discharge Will this Physician continue t: No Discharge Instruct/Medications Diet: Consistent carbohydrate, Cardiac 2g Na,low cholest Activity: No Restrictions, As Tolerated Follow Up/Referral: Dr. Abran Cordon 2-4 weeks Medications: Augmentin and doxycycline and Diflucan for 2 weeks Resume the home medications Discharge Statement: "Patient was advised to return to the ER or call 911 if any headaches, dizziness, shortness of breath, chest pain, abdominal pain, bleeding, fevers, or worsening of medical condition. Patient was counseled about treatment plan, medications, possible side effects, patientverbalized understanding. All questions were answered to the best of my ability. This discharge took greater then 30 minutes in planning, reviewing documentation, counseling the patient, and discussing with other team members." ASSESSMENT ASSESSMENT Assessment Right upper lobe pneumonia Right upper lobe lung abscess Type 2 diabetes Hypertension Coronary artery disease GERD Depression Tachycardia Sepsis due to the above Date of Service: August 09, 2024 Billing Provider: CAMERON MEMBRENO MD Common Visit Codes: [id number] DISCH DAY >30min CAMERON MEMBRENO MD August 09, 2024 13:44
== END 2024-08-09 13:14 | disposition home or self-care (01) | DRG 871 ==
LOC: ER 05:46 → OVERFLOW 14:24 → TELE-CENTR 18:06
PROVIDERS: ADMIT Internal Medicine Geriatric Medicine; ATTEND Internal Medicine Geriatric Medicine
DX: A41.9 Sepsis, unspecified organism (principal); J18.8 Other pneumonia, unspecified organism; J85.1 Abscess of lung with pneumonia; J98.11 Atelectasis; F32.A Depression, unspecified; I10 Essential (primary) hypertension; K21.9 Gastro-esophageal reflux disease without esophagitis; I25.10 Atherosclerotic heart disease of native coronary artery without angina pectoris; E78.5 Hyperlipidemia, unspecified; E11.65 Type 2 diabetes mellitus with hyperglycemia; Z83.3 Family history of diabetes mellitus; Z79.899 Other long term (current) drug therapy; Z90.49 Acquired absence of other specified parts of digestive tract; I25.2 Old myocardial infarction; Z79.82 Long term (current) use of aspirin; Z79.4 Long term (current) use of insulin
CPT/HCPCS: 36415; 71046; 71275; 80053; 80202; 80307; 81001; 82378; 82565; 82962; 83036; 83735; 85025; 85379; 85610; 85652; 85730; 86141; 86304; 86635; 86703; 86706; 86803; 87040; 96361; 96365; G0378; J1450; J1815; J2543

== ENCOUNTER 2024-10-21 11:46 | Outpatient (CLI) | payer OTHER ==
[~2024-10-21 11:46] MED LIST changes: +AMIT-238 PO; +AUG875T PO; +DOXY1CAP57 PO; -FENO134C19 PO; +FENO1CAP4 OR; +FLUC200T PO; +MET50T PO; -METO1TAB77 PO; +TIZA4CAP7 PO; -TIZA4TAB9 PO
[2024-10-21 12:40] LABS: Anion Gap 7 (5-15); Carbon Dioxide 27 mmol/L (20-31); Chloride 98 mmol/L (98-107); Potassium 4.1 mmol/L (3.5-5.1)
[2024-10-21 12:41] LABS: Calcium 9.3 mg/dL (8.7-10.4); Sodium 132 mmol/L (136-145)
[2024-10-21 12:46] LABS: BUN/Creatinine Ratio 10.2 (10.0-20.0); Blood Urea Nitrogen 11 mg/dL (9-23)
[2024-10-21 12:48] LABS: Glucose 333 mg/dL (74-106)
[2024-10-21 13:15] LABS: Microalb/Creat Ratio, Urine 8.0
== END 2024-10-21 17:00 | disposition home or self-care (01) ==
LOC: LAB 11:46
PROVIDERS: ATTEND Internal Medicine
DX: E11.9 Type 2 diabetes mellitus without complications (principal)
CPT/HCPCS: 36415; 80048; 82043; 82570

== ENCOUNTER 2025-01-14 10:33 | Outpatient (CLI) | payer OTHER ==
[2025-01-14 11:19] LABS: Hematocrit 40.3 % (41.0-53.0); Hemoglobin 14.0 g/dL (13.5-17.5); Mean Corpuscular Hemoglobin 30.9 pg (28.0-32.0); Mean Corpuscular Volume 89.1 fL (80.0-100.0); Nucleated Red Blood Cells % 0.0 %
[2025-01-14 12:15] LABS: Urine Protein, UAD Negative (Negative)
[2025-01-14 12:46] LABS: Alanine Aminotransferase 21 U/L (7-40); Albumin 4.0 g/dL (3.2-4.8); Alkaline Phosphatase 110 U/L (46-116); Anion Gap 7 (5-15); BUN/Creatinine Ratio 18.5 (10.0-20.0); Blood Urea Nitrogen 20 mg/dL (9-23); Calcium 9.1 mg/dL (8.7-10.4); Carbon Dioxide 29 mmol/L (20-31); Chloride 100 mmol/L (98-107); Potassium 4.8 mmol/L (3.5-5.1); Sodium 136 mmol/L (136-145)
[2025-01-14 12:47] LABS: Total Protein 7.0 g/dL (5.7-8.2)
[2025-01-14 12:48] LABS: Bilirubin, Total 0.5 mg/dL (0.2-1.0)
[2025-01-14 12:56] LABS: Cholesterol 227 mg/dL (< 200); Glucose 298 mg/dL (74-106); HDL Cholesterol 38 mg/dL (40-59); Triglycerides 368 mg/dL (< 150)
== END 2025-01-14 17:00 | disposition home or self-care (01) ==
LOC: LAB 10:33
PROVIDERS: ATTEND Internal Medicine
DX: N40.0 Benign prostatic hyperplasia without lower urinary tract symptoms (principal); E11.65 Type 2 diabetes mellitus with hyperglycemia; E78.1 Pure hyperglyceridemia; E78.00 Pure hypercholesterolemia, unspecified
CPT/HCPCS: 36415; 80053; 80061; 81001; 82043; 83036; 84153; 85025